=== PATIENT | female | born 1950 | race Caucasian/White ===

== ENCOUNTER 2020-03-17 08:00 | Outpatient (CLI) | payer MEDICARE, MEDICAID ==
[2020-03-17 18:45] LABS: BASOPHILS % (AUTO) 0.4 %; EOSINOPHILS # (AUTO) 0.2 10^3/uL (0.0-0.7); EOSINOPHILS % (AUTO) 3.3 %; HGB - HEMOGLOBIN 13.2 g/dL (12.0-16.0); LYMPHOCYTES # (AUTO) 2.7 10^3/uL (1.5-3.5); MEAN CORPUSCULAR HEMOGLOBIN 30.2 pg (27.0-31.0); MEAN CORPUSCULAR VOLUME 91.5 fL (81.0-99.0); MEAN PLATELET VOLUME 11.3 fL (7.9-10.8); MONOCYTES # (AUTO) 0.5 10^3/uL (0.0-1.0); MONOCYTES % (AUTO) 6.3 %; NEUTROPHILS # (AUTO) 3.7 10^3/uL (1.5-6.6); NEUTROPHILS % (AUTO) 51.9 %; PLT - PLATELET COUNT 254 10^3/uL (130-450); RED BLOOD COUNT 4.37 10^6/uL (4.20-5.40); RED CELL DISTRIBUTION WIDTH 13.2 % (12.0-15.0); WHITE BLOOD COUNT 7.2 x10^3/uL (4.8-10.8)
[2020-03-17 19:30] LABS: HEMOGLOBIN A1c% 8.1 % (4.27-6.07)
[2020-03-17 19:31] LABS: ALBUMIN 3.7 g/dL (3.2-5.5); ALBUMIN/GLOBULIN RATIO 0.9 (1.0-2.2); BILIRUBIN,TOTAL 0.4 mg/dL (0.2-1.0); CALCIUM 9.5 mg/dL (8.5-10.3); CREATININE 1.1 mg/dL (0.4-1.0); TOTAL PROTEIN 7.6 g/dL (6.7-8.2); URIC ACID 10.7 mg/dL (2.6-7.2)
[2020-03-17 19:46] LABS: CREATININE,URINE 111.8 mg/dL; MICROALBUM/CREATININE RATIO,UR 8.9 ug/mg (<30.0)
== END 2020-03-17 23:59 | disposition home or self-care (01) ==
LOC: LAB.N 08:00
PROVIDERS: ATTEND Family Medicine
DX: D50.9 Iron deficiency anemia, unspecified (principal); I25.10 Atherosclerotic heart disease of native coronary artery without angina pectoris; E11.9 Type 2 diabetes mellitus without complications; R42 Dizziness and giddiness; I11.0 Hypertensive heart disease with heart failure; I50.9 Heart failure, unspecified
CPT/HCPCS: 36415; 80053; 82043; 82306; 82570; 82607; 82728; 83036; 83540; 84443; 84466; 84550; 85025

== ENCOUNTER 2020-03-26 07:00 | Outpatient (CLI) | payer MEDICAID, MEDICARE | END 2020-03-26 23:59 | disposition home or self-care (01) | LOC: COV 07:00 | PROVIDERS: ATTEND Ophthalmology | DX: Z01.812 Encounter for preprocedural laboratory examination (principal); H25.812 Combined forms of age-related cataract, left eye; E11.9 Type 2 diabetes mellitus without complications; Z20.828 Contact with and (suspected) exposure to other viral communicable diseases ==

== ENCOUNTER 2020-04-01 06:54 | Day surgery (SDC) | payer MEDICAID, MEDICARE ==
[~2020-04-01 06:54] MED LIST: KETOROLAC 0.45% OPHTH DROPS ONE; PHENYLEPHRINE 2.5% OPHTH 2 ML DROPS ONE; PROPARACAINE 0.5% OPHTH DROPS 15 ML ONE
[2020-04-01] MEDS ORDERED: LACTATED RINGERS 500 ML IV ONE (07:46)
--- NOTE | 2020-04-01 07:51 | ANESTHESIA ---
Pre-Anesthesia VS, & Labs - Diagnosis left eye senile cataract - Procedure left eye cataract extraction with IOL Vital Signs: Temp Pulse Resp BP Pulse Ox 36.1 C L 81 16 141/58 H 98 04/01/20 07:15 04/01/20 07:15 04/01/20 07:15 04/01/20 07:15 04/01/20 07:15 Height: 5 ft 3 in Weight (kg): 88.8 kg Body Mass Index: 34.7 BMI Classification: Obese - NPO >8 hours - Is Patient ?: No Home Medications and Allergies Home Medications: Ambulatory Orders Albuterol Sulf [Ventolin Hfa Inhaler] 1 - 2 puffs INH Q6HR PRN 03/31/20 Alirocumab [Praluent Pen] 75 mg SQ OAW 03/31/20 Aspirin [Aspirin EC] 81 mg PO DAILY 03/31/20 Ergocalciferol [Vitamin D2] 50,000 unit PO Q7D 03/31/20 Insulin Aspart 5 unit SQ QDLUNCH 03/31/20 Insulin Aspart 8 unit SQ QDDINNER 03/31/20 Insulin Aspart (Niacinamide) [Fiasp 100 Unit/ml Vial] 5 unit SUBQ QDBREAKFAST 03/31/20 Insulin NPH Human [NovoLIN N] 50 unit SUBQ QPM 03/31/20 Insulin NPH Human [NovoLIN N] 150 unit SUBQ QDBREAKFAST 03/31/20 Liothyronine [Cytomel] 0.25 tab PO QPM 03/31/20 Liothyronine [Cytomel] 25 mcg PO DAILY 03/31/20 Lisinopril [Zestril] 40 mg PO DAILY 03/31/20 Metoprolol Succinate [Toprol Xl] 25 mg PO DAILY 03/31/20 Multivit-Min/FA/Lycopen/Lutein [Centrum Silver Men Tablet] 1 each PO DAILY 03/31/20 Olopatadine HCl [Pataday] 1 drops OP DAILY PRN 03/31/20 Potassium Chloride [K-Dur] 20 meq PO BID 03/31/20 Prazosin [Minipress] 1 mg PO QPM 03/31/20 Torsemide 40 mg PO DAILY 03/31/20 amLODIPine [Norvasc] 10 mg PO DAILY 03/31/20 Albuterol Sulf [Ventolin Hfa Inhaler] 1 - 2 puffs INH Q6HR PRN 03/31/20 Alirocumab [Praluent Pen] 75 mg SQ OAW 03/31/20 Aspirin [Aspirin EC] 81 mg PO DAILY 03/31/20 Ergocalciferol [Vitamin D2] 50,000 unit PO Q7D 03/31/20 Insulin Aspart 5 unit SQ QDLUNCH 03/31/20 Insulin Aspart 8 unit SQ QDDINNER 03/31/20 Insulin Aspart (Niacinamide) [Fiasp 100 Unit/ml Vial] 5 unit SUBQ QDBREAKFAST 03/31/20 Insulin NPH Human [NovoLIN N] 50 unit SUBQ QPM 03/31/20 Insulin NPH Human [NovoLIN N] 150 unit SUBQ QDBREAKFAST 03/31/20 Liothyronine [Cytomel] 0.25 tab PO QPM 03/31/20 Liothyronine [Cytomel] 25 mcg PO DAILY 03/31/20 Lisinopril [Zestril] 40 mg PO DAILY 03/31/20 Metoprolol Succinate [Toprol Xl] 25 mg PO DAILY 03/31/20 Multivit-Min/FA/Lycopen/Lutein [Centrum Silver Men Tablet] 1 each PO DAILY 03/31/20 Olopatadine HCl [Pataday] 1 drops OP DAILY PRN 03/31/20 Potassium Chloride [K-Dur] 20 meq PO BID 03/31/20 Prazosin [Minipress] 1 mg PO QPM 03/31/20 Torsemide 40 mg PO DAILY 03/31/20 amLODIPine [Norvasc] 10 mg PO DAILY 03/31/20 Allergies/Adverse Reactions: Allergies Allergy/AdvReac Type Severity Reaction Status Date / Time acetaminophen [From Percocet] Allergy Hives Verified 03/31/20 13:18 aripiprazole [From Abilify] Allergy Hives Verified 03/31/20 13:18 brompheniramine Allergy Hives Verified 03/31/20 13:18 [From Dimetapp (brompheniramine-PPA)] canagliflozin [From Invokana] Allergy Hives Verified 03/31/20 13:18 celecoxib [From Celebrex] Allergy Hives Verified 03/31/20 13:18 cephalexin [From Keflex] Allergy Hives Verified 03/31/20 13:18 citalopram [From Celexa] Allergy Hives Verified 03/31/20 13:18 codeine Allergy Rash Verified 03/31/20 13:18 divalproex sodium Allergy Hives Verified 03/31/20 13:18 [From Depakote] enalaprilat [From Vasotec] Allergy Hives Verified 03/31/20 13:18 glipizide Allergy Hives Verified 03/31/20 13:18 hydrocodone Allergy Hives Verified 03/31/20 13:18 latex Allergy Rash Verified 03/31/20 13:18 oxycodone [From Percocet] Allergy Hives Verified 03/31/20 13:18 phenylpropanolamine Allergy Hives Verified 03/31/20 13:18 [From Dimetapp (brompheniramine-PPA)] pioglitazone [From Actos] Allergy Hives Verified 03/31/20 13:18 silicone Allergy Rash Verified 03/31/20 13:18 tramadol [From Ultram] Allergy Hives Verified 03/31/20 13:18 bupropion AdvReac Unknown Verified 03/31/20 13:18 carvedilol AdvReac Unknown Verified 03/31/20 13:18 cetirizine AdvReac Unknown Verified 03/31/20 13:18 chlorthalidone AdvReac Unknown Verified 03/31/20 13:18 ciprofloxacin AdvReac Unknown Verified 03/31/20 13:18 clonidine AdvReac Unknown Verified 03/31/20 13:18 furosemide [From Lasix] AdvReac Unknown Verified 03/31/20 13:18 linagliptin [From Tradjenta] AdvReac Unknown Verified 03/31/20 13:18 metformin AdvReac Unknown Verified 03/31/20 13:18 venlafaxine [From Effexor] AdvReac Unknown Verified 03/31/20 13:18 Anes History & Medical History - Anesthetic History Anesthesia Complications: reports: No previous complications - Medical History Cardiovascular: reports: Congestive heart failure, Hypertension, High cholesterol, Coronary artery disease, Arrhythmia Pulmonary: reports: Asthma, Sleep apnea (has not used for 3 months) Gastrointestinal: reports: None Urinary: reports: Kidney stones Neuro: reports: Dementia Musculoskeletal: reports: Osteoarthritis, Gout Endocrine/Autoimmune: reports: Type 2 diabetes, HyPOthyroidism Skin: reports: None Smoking Status: Never smoker Psychosocial: reports: Depression, Anxiety, Other (bipolar) - Surgical History General: Cholecystectomy, Appendectomy Eyes Ears Nose Throat (EENT): Rhinoplasty Cardiothoracic: Pacemaker Urologic: Bladder surgery Gynecologic: Tubal ligation, Hysterectomy, Mastectomy Orthopedic: Arthroscopic surgery, Other Exam General: Alert, Cooperative Mouth Openin Fingerbreadth Neck Mobility: Normal Mallampati classification: III Cognitive Status: Within normal limits Plan Anesthesia Type: MAC Consent for Procedure(s) Verified and Reviewed: Yes Code Status: Attempt Resuscitation ASA classification: 3-Severe systemic disease Is this case an emergency?: No
[2020-04-01] MEDS ORDERED: MIDAZOLAM 2 MG/2 ML VIAL IVP ONE (07:59)
[2020-04-01] MEDS ORDERED: CHONDR SULF/HYALURONATE SYRINGE IO ONE (08:04)
[2020-04-01] MEDS ORDERED: TRIAMCIN/MOXIFLOX OPHTHALMIC 0.6 ML VIAL IO ONE ×2 (08:04→09:47)
[2020-04-01] MEDS ORDERED: PROPARACAINE 0.5% OPHTH DROPS 15 ML EACHEYE ONE (08:04)
[2020-04-01] MEDS ORDERED: BSS/LIDOCAINE/EPINEPHRINE 1 ML SYRINGE IO ONE (08:04)
[2020-04-01] MEDS ORDERED: VANCOMYCIN OPHTHALMI 8MG/0.8ML 8 MG/0.8 ML SYRINGE IO ONE ×2 (08:04→09:48)
[2020-04-01] MEDS ORDERED: TIMOLOL 0.5% OPHTH DROPS OPTH ONE (08:04)
[2020-04-01] MEDS ORDERED: EPINEPHrine 1 MG/ML AMP IR ONE (08:04)
[2020-04-01] MEDS ORDERED: BRIMONIDINE 0.2% OPHTH DROPS 5 ML OPTH ONE (08:04)
[2020-04-01] MEDS ORDERED: LACTATED RINGERS 400 ML IV ONE (08:16)
[2020-04-01 08:36] VITALS: BP 122/44
[2020-04-01] MEDS ORDERED: BRIMONIDINE 0.2% OPHTH DROPS 5 ML ONE (09:48)
[2020-04-01] MEDS ORDERED: EPINEPHrine 1 MG/ML AMP ONE (09:48)
[2020-04-01] MEDS ORDERED: TIMOLOL 0.5% OPHTH DROPS ONE (09:48)
[2020-04-01] MEDS ORDERED: BSS/LIDOCAINE/EPINEPHRINE 1 ML SYRINGE ONE (09:48)
--- NOTE | 2020-04-01 10:44 | OPERATIVE REPORT ---
DATE OF SERVICE: 04/01/2020 Physician: Adelso Car MD PREOPERATIVE DIAGNOSIS: Visually significant cataract, left eye. This was her first cataract surger y. POSTOPERATIVE DIAGNOSIS: Visually significant cataract, left eye. This was her first cataract surge ry. PROCEDURE PERFORMED: Phacoemulsification with posterior chamber intraocular lens implant, left eye. SURGEON: Adelso Car MD. ANESTHESIA: Monitored anesthesia care. COMPLICATIONS: None. OPERATIVE INDICATIONS: This is a 70-year-old woman with progressive vision loss in the left eye due to 3+ nuclear sclerotic, 2+ cortical, and 1+ posterior subcapsular cataract. Best corrected visual a cuity was 20/30 with glare to light perception vision in the left eye. Indications for surgery are o verall decrease in vision, difficulty reading, difficulty seeing words, closed caption or game scores on TV, difficulty seeing street lights, difficulty driving at night because of headlights from other vehicles, and difficulty with glare or bright lights in any situation. She was consented at length concerning risks and benefits of cataract surgery, after which she expressed a desire to proceed with surgery. OPERATIVE PROCEDURE: The patient was taken to OR #3 and placed under monitored anesthesia care. A s urgical timeout was conducted, confirming correct patient, correct procedure, and correct surgical si te. She was given topical anesthesia and prepped and draped in usual sterile fashion. The eye was e ntered at the 6 and 3 o'clock positions. Intracameral Shugarcaine was injected into the anterior vianey mber followed by Viscoat. A continuous-tear curvilinear capsulorrhexis was performed. The nucleus w as hydrodissected and phacoemulsified. The cortex was evacuated using automated infusion and aspirat ion. Provisc was injected in the capsular bag and a 22.5 diopter intraocular lens inserted in the ba g. Infusion and aspiration were used to evacuate the viscoelastic materials. The eye was inflated t o physiologic pressure using balanced salt solution and found to be watertight. Approximately 0.25 m L of a mixture of triamcinolone and moxifloxacin was injected transsclerally into the vitreous in the inferotemporal quadrant. An additional 0.55 mL of a mixture of triamcinolone, moxifloxacin, and van comycin was injected subconjunctivally in the superior quadrant for infection and inflammation prophy laxis. Wound integrity was checked with Weck-Kylee sponges. The patient was taken from the operating room in good condition and given postoperative instructions. TD: 04/01/2020 08:59
--- NOTE | 2020-04-01 12:04 | ANESTHESIA POST OP EVALUATION ---
Anesthesia Post Eval - Post Anesthesia Eval Vitals: Last Vital Signs Temp 36.4 C L 04/01/20 08:14 Pulse 72 04/01/20 08:14 Resp 14 04/01/20 08:14 BP 122/44 L 04/01/20 08:14 Pulse Ox 98 04/01/20 08:14 CV Function Including HR & BP: positive: Stable Pain Control: positive: Satisfactory Nausea & Vomiting: positive: Negative Mental Status: positive: Baseline Respiratory Status: Airway Patent Hydration Status: Satisfactory Anesthesia Complications: positive: None
== END 2020-04-01 06:55 | disposition home or self-care (01) ==
LOC: SDS 06:54
PROVIDERS: ATTEND Ophthalmology
DX: E11.36 Type 2 diabetes mellitus with diabetic cataract (principal); H25.812 Combined forms of age-related cataract, left eye; Z79.4 Long term (current) use of insulin; I11.0 Hypertensive heart disease with heart failure; I50.9 Heart failure, unspecified; Z95.0 Presence of cardiac pacemaker; G47.33 Obstructive sleep apnea (adult) (pediatric); E66.9 Obesity, unspecified; Z68.34 Body mass index [BMI] 34.0-34.9, adult
CPT/HCPCS: 66984; A9270; J3490; J7120

== ENCOUNTER 2020-04-14 14:37 | Outpatient (CLI) | payer MEDICARE, MEDICAID ==
[2020-04-14 15:36] VITALS: BP 116/63
--- NOTE | 2020-04-14 15:36 | SLEEP CARE CONSULTATION ---
Information from patient questionnaire entered by Leilani Weber. I have reviewed and concur with the information entered by Leilani Weber. This document represents the service I personally performed and the decisions made by me, Ara Brandon ARNP. History of Present Illness Service Date and Time: 04/14/2020 1437 Reason for Visit: New patient Chief Complaint: reports: Unrefreshed sleep, Snoring, Excessive daytime sleepiness, Observed pauses in breathing, Frequent awakenings at night, Other (sleep apnea) Date of Onset: 1-2 years Usual bedtime: 11 PM Time it takes to fall asleep: Few minutes Snores at night: Yes (lightly) Observed to quit breathing while asleep: Yes Sleeps alone due to snoring: No Number of times waking at night: 4 Reasons for waking at night: reports: Choking, Snoring, Gasping for air Toss, Turn, or Twitch while sleeping: Yes Recalls having dreams: No Usually gets out of bed at: 830 Feels refreshed in the morning: No Morning headache: Yes (sometimes) Sleepy or fatigued during the day: Yes Ever fallen asleep while driving: No Takes day naps: Yes Dreams during day naps: Yes Prior sleep studies: Yes Year and Where: In [place] Additional HPI information: I had the pleasure of seeing SE DIAZ today regarding her having a sleep disorder. Her current complaints are sleep apnea. She had a split night study on 04-01-2019 by [facility] with an average AHI of 82.2 for very severe obstructive sleep apnea. She was on CPAP therapy but had to return he machine when she moved in mid-November. Her DME supplier asked her to return the machine saying it was a rental and so she did. She has not been able to use the CPAP therapy since then. She had a Dream station with a small full face mask. - Parasomnia Symptoms Ever been unable to move upon waking from sleep: No Walks in sleep: Yes Talks in sleep: Yes Ever acted out dreams in sleep: Yes Ever felt weak in the knees when startled or emotional: No Bothered by creepy, crawly, restless sensations in legs: No Problems with memory or concentration: Yes Subjective Initial [place] Sleepiness Scale score: 19 (in 2019) Past Medical History Past Medical History: reports: Hypertension, Congestive Heart Failure, Diabetes, Arthritis, Insulin resistance, Gout, Arrythmia, Hypothyroidism, Anxiety, Mood disorder (Bipolar), Attention deficit Social History The patient's occupation is retiree. Patient is Single and lives in [place]. Have you smoked in the past 12 months: No Alcohol use: No Caffeine use: No Family History Family history of sleep disordered breathing: Yes (sisters) Family Hx Sleep Apnea: Sibling: Snoring, Sleep apnea - Treated Allergies and Home Medications Drug allergies reviewed: Yes (as listed in chart) Home medication list reviewed: Yes (see attached list) Review of Systems Cardiovascular: reports: high blood pressure, irregular heart rate or pulse, leg or foot swelling, have to sleep sitting up Respiratory: reports: shortness of breath, chronic cough Urinary: reports: incontinence, frequency Neurological: reports: headaches, disorientation, gait or balance problems Psychiatric: reports: anxiety, mood disorder Ear/Nose/Throat: reports: wisdom teeth removed Endocrine: reports: thyroid disease, sluggishness (tired), too hot or cold, increased urination, unexplained weakness Musculoskeletal: reports: mobility problems Immunologic: reports: allergies to food or environment Physical Exam Blood Pressure: 116/63 Cuff size: wrist Heart Rate: 76 O2 Saturation: 98 Height: 5 ft 3 in Weight: 196 lb Body Mass Index: 34.7 BMI Classification: Obese Nostrils: partially obstructed Turbinates: swollen Mouth and throat: narrow oropharynx Uvula visualization: 25% Mallampati Class III Tongue: normal in size Tonsils: 2+ Neck: normal w/o lymphadenopathy or thyromegaly Heart: regular rate and rhythm Lungs: clear bilaterally Impression and Plan 1. Suspected Obstructive Sleep Apnea-Hypopnea Syndrome, as previously diagnosed in March 2019 and as suggested by a continuing of loud and irregular snoring, observed cessation of breath while asleep, gasping or choking in sleep, morning headache, frequent awakening during the night, unrefreshed sleep, cognitive impairment, and excessive daytime sleepiness without her CPAP machine. Patient had to return her machine at the request of her DME supplier and has not been on CPAP therapy since mid-November. She was doing well on the CPAP machine and really liked the improved sleep and restful sleeping she was getting on therapy. Because she has been off of the machine we will have to reassess to confirm the diagnosis and to assess severity. We can probably do a home study test to be able to get her started sooner. Patient agreed to plan. [[facility] drowsy driving brochure given.] * Schedule polysomnography/HST. * Review instructions provided by trained office staff on how to prepare for the sleep study. * Return for follow-up after sleep study completed. Visit Type: In Office Time Spent with Patient (minutes): 40 Provider Statement: I spent 100% of the Face to Face Visit with the patient with greater than 50% spent counseling the patient and coordination of care.
== END 2020-04-14 14:38 | disposition home or self-care (01) ==
LOC: SC 14:37
PROVIDERS: ATTEND Nurse Practitioner Family
DX: G47.33 Obstructive sleep apnea (adult) (pediatric) (principal); E66.9 Obesity, unspecified; Z68.34 Body mass index [BMI] 34.0-34.9, adult
CPT/HCPCS: 99203; G0463; 99212

== ENCOUNTER 2020-05-04 12:53 | Outpatient (CLI) | payer MEDICARE, MEDICAID | END 2020-05-04 12:54 | disposition home or self-care (01) | LOC: SC 12:53 | PROVIDERS: ATTEND Nurse Practitioner Family | DX: G47.33 Obstructive sleep apnea (adult) (pediatric) (principal); R09.02 Hypoxemia | CPT/HCPCS: G0399 ×2; 95806 ==

== ENCOUNTER 2020-05-07 12:25 | Outpatient (CLI) | payer MEDICARE, MEDICAID | END 2020-05-07 12:26 | disposition home or self-care (01) | LOC: LAB 12:25 | PROVIDERS: ATTEND Ophthalmology | DX: Z01.812 Encounter for preprocedural laboratory examination (principal); H25.811 Combined forms of age-related cataract, right eye; E11.9 Type 2 diabetes mellitus without complications; Z20.822 Contact with and (suspected) exposure to COVID-19 ==

== ENCOUNTER 2020-05-11 16:35 | Outpatient (CLI) | payer MEDICARE, MEDICAID ==
--- NOTE | 2020-05-11 16:51 | SLEEP CARE CONSULTATION ---
Information from patient questionnaire entered by Leilani Weber. I have reviewed and concur with the information entered by Leilani Weber. This document represents the service I personally performed and the decisions made by , Ara Brandon ARNP. History of Present Illness Service Date and Time: 05/11/2020 1640 Initial [place] Sleepiness Scale score: 19 (in 2019) Additional HPI information: SE DIAZ returns via Telehealth visit for follow up and results of the recently performed polysomnography. I explained the pathophysiology behind obstructive sleep apnea. We then spent quite a bit of time discussing different treatment options. For mild obstru ctive sleep apnea, surgery and oral appliance are alternatives to nasal CPAP therapy but in moderate or severe cases, nasal CPAP is the most effective and reliable treatment. Because apnea is primarily in supine position, then positional management therapy could be effective. Methods discussed such as positioning with pillows, using a T-shirt with tennis balls in the back, and shown commercial products that have a pillow format on back to prevent supine sleep. I reviewed the impact of weight changes on sleep apnea and strongly recommended losing weight. After some discussion, the patient opted to go with the nasal CPAP therapy. Nasal autoCPAP set at [id number] will be ordered with rationale explained. A manual titration study will be ordered if unable to find optimal pressure with office adjustments. Patient is a previous CPAP user and is familiar with its function and use. Sleep Study - Results Type of Sleep Study: Home sleep study Prior sleep studies: Yes Year and Where: In [place] Polysomnography/Home Sleep Study results: Physician Impression: The quality of the study is good. The length of the study is adequate (> 240 minutes). Please also see the tabulated and graphic data. 1. Obstructive Sleep Apnea-Hypopnea (ICD-10 G47.33), moderate, with an AHI of 26.5/hr and tika SaO2 of 75%. During the study, the patient had 43 apneas (42 obstructive, 0 central, 1 mixed) and 76 hypopneas. The longest episode lasted 55.0 seconds. The respiratory events occurred independently of body position (supine AHI was 24.4 and non-supine, 26.75). 2. Hypoxemia (ICD-10 R09.02), moderate, with the lowest oxygen saturation of 75 % and 65.4 minutes with SaO2 under 90%. Baseline oxygen saturation was normal (Average oxygen saturation was 91%). 3. Tachycardia, with maximum recoded heart rate of 142 beats per minute. Allergies and Home Medications Home medication list reviewed: Yes (no changes) Review of Systems Review of systems same as previous: Yes (no changes) Physical Exam Vital signs obtained and entered by: Telehealth visit to reduce exposure during covid pandemic Height: 5 ft 3 in Impression and Plan 1. Obstructive Sleep Apnea-Hypopnea Syndrome, moderate, with lowest oxygen saturation of 75%. Patient has a previous diagnosis of severe KINDRA in 2019 but had to return her machine when she moved to [place]. Positive pressure therapy could benefit hypertension, congestive heart failure, diabetes, arrhythmia, anxiety, Bipolar and attention deficit disorder. Patient would like to resume CPAP therapy as mentioned above, the patient will be started on nasal autoCPAP therapy with pressure set at 4-15 cmH2O. Compliance guidelines also reviewed. A copy of compliance guidelines will be given for reference at check out. Patient familiar and voiced understanding. 2. Hypoxemia, moderate. Her tika oxygen saturation was 75% and she spent 65.4 minutes with her oxygen saturation under 90%. Her average oxygen saturation was 91%. She may follow up with her PCP as needed. 3. Tachycardia in a patient with known history of heart arrhythmia. Patient has a pacemaker in place. Follow up with PCP/cardiology as needed. * Nasal auto CPAP therapy, pressure at 4-15 cm H2O. * Attempt to lose weight. * Avoid alcohol consumption near bedtime. * The patient is again cautioned about driving until sleepiness completely resolves. * Return one month after CPAP obtained. I will assess response to therapy and compliance at that time. Counseling Topics: Weight loss health impact Visit Type: Telehealth Video Video Type: VSee Patient Location: Home Location of Provider: Office Patient agrees and consents to this telehealth visit type: Yes Patient agrees to have their insurance billed: Yes Time Spent with Patient (minutes): 21 Provider Statement: I spent 100% of the Telehealth Video Call with the patient with greater than 50% spent counseling the patient and coordination of care.
== END 2020-05-11 16:36 | disposition home or self-care (01) ==
LOC: SC 16:35
PROVIDERS: ATTEND Nurse Practitioner Family
DX: G47.33 Obstructive sleep apnea (adult) (pediatric) (principal); R09.02 Hypoxemia; R00.0 Tachycardia, unspecified

== ENCOUNTER 2020-05-13 07:20 | Day surgery (SDC) | payer MEDICARE, MEDICAID ==
[2020-05-13] MEDS ORDERED: LACTATED RINGERS 500 ML IV ONE ×3 (07:47→09:24)
[2020-05-13] MEDS ORDERED: TRIAMCIN/MOXIFLOX OPHTHALMIC 0.6 ML VIAL IO ONE ×2 (07:56→09:07)
[2020-05-13] MEDS ORDERED: BSS/LIDOCAINE/EPINEPHRINE 1 ML SYRINGE ONE (07:57)
[2020-05-13] MEDS ORDERED: EPINEPHrine 1 MG/ML AMP ONE (07:57)
[2020-05-13] MEDS ORDERED: BRIMONIDINE 0.2% OPHTH DROPS 5 ML ONE (07:57)
[2020-05-13] MEDS ORDERED: VANCOMYCIN OPHTHALMI 8MG/0.8ML 8 MG/0.8 ML SYRINGE IO ONE ×2 (07:57→09:07)
[2020-05-13] MEDS ORDERED: TIMOLOL 0.5% OPHTH DROPS ONE (07:57)
--- NOTE | 2020-05-13 08:08 | ANESTHESIA ---
Pre-Anesthesia VS, & Labs - Diagnosis right eye senile combined cataract - Procedure right eye cataract extraction with IOL implant Vital Signs: Temp Pulse Resp BP Pulse Ox 35.7 C L 111 H 20 139/62 H 100 05/13/20 07:26 05/13/20 07:26 05/13/20 07:26 05/13/20 07:26 05/13/20 07:26 Height: 5 ft 3 in Weight (kg): 88.5 kg Body Mass Index: 34.5 BMI Classification: Obese - NPO >8 hours - Is Patient ?: No - Lab Results Current Lab Results: Laboratory Tests 05/13/20 07:43: POC Whole Bld Glucose 206 H Home Medications and Allergies Albuterol Sulf [Ventolin Hfa Inhaler] 1 - 2 puffs INH Q6HR PRN 03/31/20 Alirocumab [Praluent Pen] 75 mg SQ OAW 03/31/20 Aspirin [Aspirin EC] 81 mg PO DAILY 03/31/20 Ergocalciferol [Vitamin D2] 50,000 unit PO Q7D 03/31/20 Insulin Aspart 5 unit SQ QDLUNCH 03/31/20 Insulin Aspart 8 unit SQ QDDINNER 03/31/20 Insulin Aspart (Niacinamide) [Fiasp 100 Unit/ml Vial] 5 unit SUBQ QDBREAKFAST 03/31/20 Insulin NPH Human [NovoLIN N] 50 unit SUBQ QPM 03/31/20 Insulin NPH Human [NovoLIN N] 150 unit SUBQ QDBREAKFAST 03/31/20 Liothyronine [Cytomel] 0.25 tab PO QPM 03/31/20 Liothyronine [Cytomel] 25 mcg PO DAILY 03/31/20 Lisinopril [Zestril] 40 mg PO DAILY 03/31/20 Metoprolol Succinate [Toprol Xl] 25 mg PO DAILY 03/31/20 Multivit-Min/FA/Lycopen/Lutein [Centrum Silver Men Tablet] 1 each PO DAILY 03/31/20 Olopatadine HCl [Pataday] 1 drops OP DAILY PRN 03/31/20 Potassium Chloride [K-Dur] 20 meq PO BID 03/31/20 Prazosin [Minipress] 1 mg PO QPM 03/31/20 Torsemide 40 mg PO DAILY 03/31/20 amLODIPine [Norvasc] 10 mg PO DAILY 03/31/20 Allergies/Adverse Reactions: Allergies Allergy/AdvReac Type Severity Reaction Status Date / Time Penicillins Allergy Unknown Unknown Verified 05/12/20 14:05 acetaminophen [From Percocet] Allergy Hives Verified 03/31/20 13:18 aripiprazole [From Abilify] Allergy Hives Verified 03/31/20 13:18 brompheniramine Allergy Hives Verified 03/31/20 13:18 [From Dimetapp (brompheniramine-PPA)] canagliflozin [From Invokana] Allergy Hives Verified 03/31/20 13:18 celecoxib [From Celebrex] Allergy Hives Verified 03/31/20 13:18 cephalexin [From Keflex] Allergy Hives Verified 03/31/20 13:18 citalopram [From Celexa] Allergy Hives Verified 03/31/20 13:18 codeine Allergy Rash Verified 03/31/20 13:18 divalproex sodium Allergy Hives Verified 03/31/20 13:18 [From Depakote] enalaprilat [From Vasotec] Allergy Hives Verified 03/31/20 13:18 glipizide Allergy Hives Verified 03/31/20 13:18 hydrocodone Allergy Hives Verified 03/31/20 13:18 latex Allergy Rash Verified 03/31/20 13:18 oxycodone [From Percocet] Allergy Hives Verified 03/31/20 13:18 phenylpropanolamine Allergy Hives Verified 03/31/20 13:18 [From Dimetapp (brompheniramine-PPA)] pioglitazone [From Actos] Allergy Hives Verified 03/31/20 13:18 silicone Allergy Rash Verified 03/31/20 13:18 tramadol [From Ultram] Allergy Hives Verified 03/31/20 13:18 bupropion AdvReac Unknown Verified 03/31/20 13:18 carvedilol AdvReac Unknown Verified 03/31/20 13:18 cetirizine AdvReac Unknown Verified 03/31/20 13:18 chlorthalidone AdvReac Unknown Verified 03/31/20 13:18 ciprofloxacin AdvReac Unknown Verified 03/31/20 13:18 clonidine AdvReac Unknown Verified 03/31/20 13:18 furosemide [From Lasix] AdvReac Unknown Verified 03/31/20 13:18 linagliptin [From Tradjenta] AdvReac Unknown Verified 03/31/20 13:18 metformin AdvReac Unknown Verified 03/31/20 13:18 venlafaxine [From Effexor] AdvReac Unknown Verified 03/31/20 13:18 Anes History & Medical History - Anesthetic History Anesthesia Complications: reports: No previous complications - Medical History Cardiovascular: reports: Congestive heart failure, Hypertension, High cholesterol, Other Pulmonary: reports: Shortness of breath, Sleep apnea (Does not have CPAP yet) Gastrointestinal: reports: None Urinary: reports: Renal insuffiency Neuro: reports: Dementia Musculoskeletal: reports: Osteoarthritis, Gout Endocrine/Autoimmune: reports: Type 2 diabetes, HyPOthyroidism Skin: reports: None Smoking Status: Never smoker Psychosocial: reports: No issues indicated History of Cancer?: No - Surgical History General: Cholecystectomy, Appendectomy Eyes Ears Nose Throat (EENT): Cataracts Gynecologic: Hysterectomy, Mastectomy Exam General: Alert, Oriented x3, Cooperative, No acute distress Dental: Poor dentition Mouth Openin Fingerbreadth Neck Mobility: Normal Mallampati classification: III Thyromental Distance: 4-6 cm Mental/Cognitive Status: Alert/Oriented X3, Normal for patient Plan Anesthesia Type: MAC Consent for Procedure(s) Verified and Reviewed: Yes Code Status: Attempt Resuscitation ASA classification: 3-Severe systemic disease Is this case an emergency?: No
[2020-05-13] MEDS ORDERED: MIDAZOLAM 2 MG/2 ML VIAL ONE ×2 (08:28→08:47)
[2020-05-13] MEDS ORDERED: EPINEPHrine 1 MG/ML AMP IR ONE (09:06)
[2020-05-13] MEDS ORDERED: BRIMONIDINE 0.2% OPHTH DROPS 5 ML OPTH ONE (09:06)
[2020-05-13] MEDS ORDERED: TIMOLOL 0.5% OPHTH DROPS OPTH ONE (09:06)
[2020-05-13] MEDS ORDERED: CHONDR SULF/HYALURONATE SYRINGE IO ONE (09:06)
[2020-05-13] MEDS ORDERED: BSS/LIDOCAINE/EPINEPHRINE 1 ML SYRINGE IO ONE (09:07)
[2020-05-13] MEDS ORDERED: PROPARACAINE 0.5% OPHTH DROPS 15 ML EACHEYE ONE (09:07)
[2020-05-13 09:26] VITALS: BP 128/112
--- NOTE | 2020-05-13 10:35 | OPERATIVE REPORT ---
DATE OF SERVICE: 05/13/2020 Physician: Adelso Car MD PREOPERATIVE DIAGNOSIS: Visually significant cataract, right eye. Cataract surgery was performed on the left eye on 04/01/2020. POSTOPERATIVE DIAGNOSIS: Visually significant cataract, right eye. Cataract surgery was performed o n the left eye on 04/01/2020. PROCEDURE: Phacoemulsification with posterior chamber intraocular lens implant, right eye. SURGEON: Adelso Car MD. ANESTHESIA: Monitored anesthesia care. COMPLICATIONS: None. OPERATIVE INDICATIONS: This is a 70-year-old woman with progressive vision loss in the right eye due to 3+ nuclear sclerotic and 2+ cortical cataract. Best corrected visual acuity was 20/25 with light perception vision with glare in the right eye. She was consented at length concerning risks and matt efits of cataract surgery, after which she expressed a desire to proceed with surgery. OPERATIVE PROCEDURE: The patient was taken to OR #3 and placed under monitored anesthesia care. A s urgical timeout was conducted, confirming correct patient, correct procedure, and the correct surgica l site. She was given topical anesthesia and prepped and draped in the usual sterile fashion. The e ye was entered at the 12 and 9 o'clock positions. Intracameral Shugarcaine was injected into the ant erior chamber followed by Viscoat. A continuous-tear curvilinear capsulorrhexis was performed. The nucleus was hydrodissected and phacoemulsified. The cortex was evacuated using automated infusion an d aspiration. Provisc was injected in the capsular bag and a 22.5 diopter intraocular lens inserted in the bag. Infusion and aspiration were used to evacuate the viscoelastic materials. The eye was i nflated to physiologic pressure using balanced salt solution and found to be watertight. Approximate ly 0.25 mL of a mixture of triamcinolone and moxifloxacin was injected transsclerally into the vitreo us in the inferotemporal quadrant. An additional 0.55 mL of a mixture of triamcinolone, moxifloxacin , and vancomycin was injected subconjunctivally in the superior quadrant for infection and inflammati on prophylaxis. Wound integrity was checked with Weck-Kylee sponges. The patient was taken from the o perating room in good condition and given postoperative instructions. TD: 05/13/2020 09:28
--- NOTE | 2020-05-13 11:06 | ANESTHESIA POST OP EVALUATION ---
Anesthesia Post Eval - Post Anesthesia Eval Vitals: Last Vital Signs Temp 36.4 C L 05/13/20 09:25 Pulse 81 05/13/20 09:25 Resp 16 05/13/20 09:25 BP 128/112 H 05/13/20 09:25 Pulse Ox 96 05/13/20 09:25 CV Function Including HR & BP: positive: Stable Pain Control: positive: Satisfactory Nausea & Vomiting: positive: Negative Mental Status: positive: Patient Participates Respiratory Status: Airway Patent Hydration Status: Satisfactory Anesthesia Complications: positive: None
== END 2020-05-13 07:21 | disposition home or self-care (01) ==
LOC: SDS 07:20
PROVIDERS: ATTEND Ophthalmology
DX: E11.36 Type 2 diabetes mellitus with diabetic cataract (principal); H25.811 Combined forms of age-related cataract, right eye; E66.9 Obesity, unspecified; Z68.34 Body mass index [BMI] 34.0-34.9, adult; I11.0 Hypertensive heart disease with heart failure; I50.9 Heart failure, unspecified; E78.00 Pure hypercholesterolemia, unspecified; G47.30 Sleep apnea, unspecified; N28.9 Disorder of kidney and ureter, unspecified; F31.9 Bipolar disorder, unspecified; D47.2 Monoclonal gammopathy; F03.90 Unspecified dementia, unspecified severity, without behavioral disturbance, psychotic disturbance, mood disturbance, and anxiety; M10.9 Gout, unspecified; E03.9 Hypothyroidism, unspecified; M19.90 Unspecified osteoarthritis, unspecified site; Z95.0 Presence of cardiac pacemaker; Z79.82 Long term (current) use of aspirin; Z79.51 Long term (current) use of inhaled steroids; Z79.4 Long term (current) use of insulin; Z79.899 Other long term (current) drug therapy
CPT/HCPCS: 66984; A9270; J3490; J7120; V2632

== ENCOUNTER 2020-05-17 08:42 | Outpatient (CLI) | payer MEDICARE, MEDICAID ==
[2020-05-17 12:43] LABS: CALCIUM 9.5 mg/dL (8.5-10.3)
[2020-05-17 14:14] LABS: HEMOGLOBIN A1c% 6.6 % (4.27-6.07)
== END 2020-05-17 08:43 | disposition home or self-care (01) ==
LOC: LAB.N 08:42
PROVIDERS: ATTEND Internal Medicine
DX: E11.65 Type 2 diabetes mellitus with hyperglycemia (principal); E55.9 Vitamin D deficiency, unspecified
CPT/HCPCS: 36415; 80048; 82306; 83036

== ENCOUNTER 2020-05-27 11:46 | Outpatient (CLI) | payer MEDICARE, MEDICAID ==
--- NOTE | 2020-05-27 17:27 | XRAY Report ---
PROCEDURE: Foot 3 View LT INDICATIONS: CRUSHING INJURY OF LEFT FOOT TECHNIQUE: 3 views of the foot were acquired. COMPARISON: None FINDINGS: Bones: There is a nondisplaced distal first phalanx fracture best seen on lateral view. No suspicious bony lesions. Severe first MTP degenerative narrowing with small periarticular osteophytes and subc hondral sclerosis is present. Soft tissues: No tibiotalar joint effusion. Achilles tendon appears normal. IMPRESSION: Nondisplaced distal first phalanx fracture. Reviewed by: Nicky Young MD on 05/27/2020 5:25 PM [facility] Approved by: Nicky Young MD on 05/27/2020 5:25 PM [facility] Station ID: [id number]
== END 2020-05-27 23:59 | disposition home or self-care (01) ==
LOC: DI.N 11:46
PROVIDERS: ATTEND Nurse Practitioner
DX: S97.82XA Crushing injury of left foot, initial encounter (principal); S92.425A Nondisplaced fracture of distal phalanx of left great toe, initial encounter for closed fracture

== ENCOUNTER 2020-05-28 13:43 | Outpatient (CLI) | payer MEDICARE, MEDICAID ==
--- NOTE | 2020-05-28 14:13 | CT Report ---
PROCEDURE: HEAD WO INDICATIONS: DEMENTIA, CEREBROVASCULAR DISEASE, PACEMAKER TECHNIQUE: Noncontrast 4.5 mm thick angled axial sections acquired from the foramen magnum to the vertex. For r adiation dose reduction, the following was used: automated exposure control, adjustment of mA and/or kV according to patient size. COMPARISON: None. FINDINGS: Image quality: Excellent. CSF spaces: Basal cisterns are patent. No extra-axial fluid collections. Ventricles are normal in size and shape. Brain: No midline shift. No intracranial masses or hemorrhage. Juárez-white matter interface is norm al. Skull and face: Calvarium and visualized facial bones are intact, without suspicious lesions. Mild sphenoid sinus is seen bilaterally. Remaining paranasal sinuses grossly clear except for trace m ucosal thickening in the right maxillary sinus. Mastoid air cells appear clear. IMPRESSION: No acute intracranial process. Mild paranasal sinus disease as above Reviewed by: Yung Mills MD on 05/28/2020 2:12 PM PST Approved by: Yung Mills MD on 05/28/2020 2:12 PM PST Station ID: [id number]
== END 2020-05-28 13:44 | disposition home or self-care (01) ==
LOC: DI 13:43
PROVIDERS: ATTEND Psychiatry & Neurology Neurology
DX: G45.9 Transient cerebral ischemic attack, unspecified (principal); F03.90 Unspecified dementia, unspecified severity, without behavioral disturbance, psychotic disturbance, mood disturbance, and anxiety; I67.9 Cerebrovascular disease, unspecified; Z95.0 Presence of cardiac pacemaker; J32.9 Chronic sinusitis, unspecified

== ENCOUNTER 2020-06-08 14:05 | Outpatient (CLI) | payer MEDICARE, MEDICAID ==
--- NOTE | 2020-06-08 16:30 | XRAY Report ---
PROCEDURE: Abdomen 2 View X-Ray INDICATIONS: TORTUOUS COLON TECHNIQUE: 2 views of the abdomen were acquired. COMPARISON: None. FINDINGS: Surgical changes and devices: Surgical clips in the right upper quadrant presumably related to cholec ystectomy. Bowel: No pneumoperitoneum. The bowel gas pattern is normal. Moderate amount of stool in colon. Soft tissues: No masses; visualized solid organ contours appear normal in size. No suspicious abdom inal calcifications. Bones: No suspicious bony abnormalities. IMPRESSION: Moderate amount of stool in colon. Reviewed by: Marylin Ortiz MD on 06/08/2020 4:29 PM PST Approved by: Marylin Ortiz MD on 06/08/2020 4:29 PM PST Station ID: [id number]
== END 2020-06-08 14:06 | disposition home or self-care (01) ==
LOC: DI 14:05
PROVIDERS: ATTEND Surgery
DX: K63.89 Other specified diseases of intestine (principal)

== ENCOUNTER 2020-06-08 16:25 | Observation (INO) | payer MEDICARE, MEDICAID ==
[2020-06-08] MEDS ORDERED: SODIUM CHLORIDE 0.9% 1,000 ML IV STA ×2 (17:03→17:04)
--- NOTE | 2020-06-08 17:07 | ED Physician Documentation ---
PD HPI [facility] NEURO - Stated complaint Stated Complaint: CVA SX - Chief complaint Chief Complaint: Neuro - History obtained from History obtained from: Patient, Family - History of Present Illness Timing - onset: How many hours ago (1) Timing - duration: Hours (1) Timing - details: Abrupt onset Weakness: No: Face, Arm, Hand, Leg, Foot, Right, Left Numbness: No: Face, Arm, Hand, Leg, Foot, Right, Left Associated symptoms: No: Headache, Nausea / vomiting, Seizure, Syncope, Fall, Head injury, Chest pain, Neck pain, Back pain, Fever Baseline status: positive: A&OX3, ambulatory, indep - Additional information Additional information: Patient is a 70-year-old female who presents to the emergency department feeling lightheaded, dizzy and "seeing stars in her vision". She states she felt cold, clammy. Better with lying down. [place] like she might pass out. Family states that she had altered mental status. No shortness of breath. No numbness or tingling. Denies any previous events similar to this. The patient did recently moved here from [place]. She has a pacemaker in place. Review of Systems Unable to obtain: Confused Constitutional: denies: Fever, Chills Respiratory: denies: Cough GI: denies: Nausea, Vomiting, Diarrhea Skin: denies: Rash Musculoskeletal: denies: Neck pain, Back pain Neurologic: denies: Headache PD PAST MEDICAL HISTORY - Past Medical History Past Medical History: Yes Respiratory: Shortness of breath, Sleep apnea (Does not have CPAP yet) Neuro: Dementia - Past Surgical History HEENT: Cataracts - Present Medications Home Medications: Ambulatory Orders Medication Instructions Recorded Confirmed Albuterol Sulf [Ventolin Hfa 1 - 2 puffs INH Q6HR PRN 03/31/20 06/08/20 Inhaler] Alirocumab [Praluent Pen] 75 mg SQ OAW 03/31/20 06/08/20 Aspirin [Aspirin EC] 81 mg PO DAILY 03/31/20 06/08/20 Ergocalciferol [Vitamin D2] 50,000 unit PO Q7D 03/31/20 06/08/20 Insulin Aspart 5 unit SQ QDLUNCH 03/31/20 06/08/20 Insulin Aspart 7 unit SQ QDDINNER 03/31/20 06/08/20 Insulin Aspart (Niacinamide) 7 unit SUBQ QDBREAKFAST 03/31/20 06/08/20 [Fiasp 100 Unit/ml Vial] Insulin NPH Human [NovoLIN N] 50 unit SUBQ QPM 03/31/20 06/08/20 Insulin NPH Human [NovoLIN N] 140 unit SUBQ QDBREAKFAST 03/31/20 05/12/20 Liothyronine [Cytomel] 0.25 tab PO QPM 03/31/20 06/08/20 Liothyronine [Cytomel] 25 mcg PO DAILY 03/31/20 06/08/20 Lisinopril [Zestril] 20 mg PO DAILY 03/31/20 06/08/20 Metoprolol Succinate [Toprol Xl] 25 mg PO DAILY 03/31/20 06/08/20 Multivit-Min/FA/Lycopen/Lutein 1 each PO DAILY 03/31/20 06/08/20 [Centrum Silver Men Tablet] Olopatadine HCl [Pataday] 1 drops OP DAILY PRN 03/31/20 06/08/20 Potassium Chloride [K-Dur] 20 meq PO BID 03/31/20 06/08/20 Prazosin [Minipress] 1 mg PO QPM 03/31/20 06/08/20 Torsemide 40 mg PO DAILY 03/31/20 06/08/20 amLODIPine [Norvasc] 10 mg PO DAILY 03/31/20 06/08/20 - Allergies Allergies/Adverse Reactions: Allergies Allergy/AdvReac Type Severity Reaction Status Date / Time Penicillins Allergy Unknown Unknown Verified 06/08/20 16:31 acetaminophen [From Percocet] Allergy Hives Verified 06/08/20 16:31 aripiprazole [From Abilify] Allergy Hives Verified 06/08/20 16:31 brompheniramine Allergy Hives Verified 06/08/20 16:31 [From Dimetapp (brompheniramine-PPA)] canagliflozin [From Invokana] Allergy Hives Verified 06/08/20 16:31 celecoxib [From Celebrex] Allergy Hives Verified 06/08/20 16:31 cephalexin [From Keflex] Allergy Hives Verified 06/08/20 16:31 citalopram [From Celexa] Allergy Hives Verified 06/08/20 16:31 codeine Allergy Rash Verified 06/08/20 16:31 divalproex sodium Allergy Hives Verified 06/08/20 16:31 [From Depakote] enalaprilat [From Vasotec] Allergy Hives Verified 06/08/20 16:31 glipizide Allergy Hives Verified 06/08/20 16:31 hydrocodone Allergy Hives Verified 06/08/20 16:31 latex Allergy Rash Verified 06/08/20 16:31 oxycodone [From Percocet] Allergy Hives Verified 06/08/20 16:31 phenylpropanolamine Allergy Hives Verified 06/08/20 16:31 [From Dimetapp (brompheniramine-PPA)] pioglitazone [From Actos] Allergy Hives Verified 06/08/20 16:31 silicone Allergy Rash Verified 06/08/20 16:31 tramadol [From Ultram] Allergy Hives Verified 06/08/20 16:31 bupropion AdvReac Unknown Verified 06/08/20 16:31 carvedilol AdvReac Unknown Verified 06/08/20 16:31 cetirizine AdvReac Unknown Verified 06/08/20 16:31 chlorthalidone AdvReac Unknown Verified 06/08/20 16:31 ciprofloxacin AdvReac Unknown Verified 06/08/20 16:31 clonidine AdvReac Unknown Verified 06/08/20 16:31 furosemide [From Lasix] AdvReac Unknown Verified 06/08/20 16:31 linagliptin [From Tradjenta] AdvReac Unknown Verified 06/08/20 16:31 metformin AdvReac Unknown Verified 06/08/20 16:31 venlafaxine [From Effexor] AdvReac Unknown Verified 06/08/20 16:31 - Social History Smoking Status: Never smoker PD ED PE NORMAL - Vitals Vital signs reviewed: Yes - General General: No acute distress, Well developed/nourished, Other (Patient is slightly slow to respond, mildly confused) - HEENT HEENT: Atraumatic, PERRL, EOMI, Ears normal, Moist mucous membranes - Neck Neck: Supple, no meningeal sign, No bony TTP - Cardiac Cardiac: RRR, No murmur, Strong equal pulses - Respiratory Respiratory: No respiratory distress, Clear bilaterally - Abdomen Abdomen: Soft, Non tender, Non distended - Back Back: No CVA TTP, No spinal TTP - Derm Derm: Warm and dry, No rash - Extremities Extremities: No edema, No calf tenderness / cord - 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, No motor deficit, No sensory deficit, Normal speech Eye Opening: Spontaneous Motor: Obeys Commands Verbal: Confused GCS Score: 14 - Psych Psych: Normal mood, Normal affect NIHSS - Time Time: 16:40 - Level of Consciousness Level of consciousness: (1) Not alert, but arousable by minor stimulation to obey, or answer LOC Questions: (0) Answers both Q's correct LOC Commands: (0) Performs both correctly - Gaze Best Gaze: (0) Normal - Visual Visual: (0) No loss - Facial Palsy Facial Palsy: (0) Normal, symmetrical movement - Motor Arms (both separate) Motor Arm (right): (0) No drift Motor Arm (left): (0) No drift - Motor Legs (both separate) Motor Leg (right): (0) No drift Motor Leg (left): (0) No drift - Limb Ataxia Limb Ataxia: (0) Absent - Sensory Sensory: (0) Normal - Best Language Best Language: (0) No aphasia - Dysarthria Dysarthria: (0) Normal - Extinction and Inattention (formally neg Extinction and inattention: (0) No abnormality - Total Score/Results Total Score/Result: 1 Results - Vitals Vitals: Vital Signs - 24 hr 06/08/20 06/08/20 06/08/20 16:33 17:15 17:27 Temperature 36.9 C 36.7 C Heart Rate 102 H 97 93 Respiratory 22 20 16 Rate Blood Pressure 141/105 H 143/73 H 118/66 O2 Saturation 98 97 100 06/08/20 06/08/20 06/08/20 17:30 18:13 19:14 Temperature 37.0 C 36.6 C Heart Rate 94 95 96 Respiratory 14 16 15 Rate Blood Pressure 146/63 H 136/57 H 140/67 H O2 Saturation 99 100 99 Oxygen O2 Source Room air - EKG (time done) 1658 Rate: Rate (enter#) (94) Rhythm: Paced - Labs Labs: Laboratory Tests 06/08/20 06/08/20 06/08/20 16:42 16:48 16:48 WBC 10.3 RBC 4.74 Hgb 13.9 Hct 42.1 MCV 88.8 MCH 29.3 MCHC 33.0 RDW 13.6 Plt Count 276 MPV 10.7 Neut # (Auto) 5.4 Lymph # (Auto) 4.1 H Story # (Auto) 0.6 Eos # (Auto) 0.2 Baso # (Auto) 0.0 Absolute Nucleated RBC 0.00 Nucleated RBC % 0.0 Sodium 138 Potassium 3.9 Chloride 102 Carbon Dioxide 24 Anion Gap 12.0 BUN 23 H Creatinine 1.2 H Estimated GFR (MDRD) 45 L Glucose 125 H POC Whole Bld Glucose 126 H Calcium 9.6 Total Bilirubin 0.5 AST 23 ALT 25 Alkaline Phosphatase 61 Troponin I High Sens Total Protein 8.0 Albumin 4.0 Globulin 4.0 Albumin/Globulin Ratio 1.0 Lipase 44 TSH Urine Color Urine Clarity Urine pH Ur Specific [place] Urine Protein Urine Glucose (UA) Urine Ketones Urine Occult Blood Urine Nitrite Urine Bilirubin Urine Urobilinogen Ur Leukocyte Esterase Ur Microscopic Review Urine Culture Comments Nasal Adenovirus (PCR) Nasal B. parapertussis DNA (PCR) Nasal Coronavir 229E PCR Nasal Coronavir HKU1 PCR Nasal Coronavir NL63 PCR Nasal Coronavir OC43 PCR Nasal Enterovir/Rhinovir PCR Nasal Influenza B PCR Nasal Influenza A PCR Nasal Parainfluen 1 PCR Nasal Parainfluen 2 PCR Nasal Parainfluen 3 PCR Nasal Parainfluen 4 PCR Nasal RSV (PCR) Nasal B.pertussis DNA PCR Nasal C.pneumoniae (PCR) Lex Human Metapneumo PCR Nasal M.pneumoniae (PCR) Nasal SARS-CoV-2 (PCR) Salicylates < 6.0 Urine Opiates Screen Ur Oxycodone Screen Urine Methadone Screen Ur Propoxyphene Screen Acetaminophen < 10 L Ur Barbiturates Screen Ur Tricyclics Screen Ur Phencyclidine Scrn Ur Amphetamine Screen U Methamphetamines Scrn U Benzodiazepines Scrn Urine Cocaine Screen U Cannabinoids Screen Ethyl Alcohol < 5.0 06/08/20 06/08/20 06/08/20 16:48 16:48 17:29 WBC RBC Hgb Hct MCV MCH MCHC RDW Plt Count MPV Neut # (Auto) Lymph # (Auto) Story # (Auto) Eos # (Auto) Baso # (Auto) Absolute Nucleated RBC Nucleated RBC % Sodium Potassium Chloride Carbon Dioxide Anion Gap BUN Creatinine Estimated GFR (MDRD) Glucose POC Whole Bld Glucose Calcium Total Bilirubin AST ALT Alkaline Phosphatase Troponin I High Sens 8.7 Total Protein Albumin Globulin Albumin/Globulin Ratio Lipase TSH 1.45 Urine Color Urine Clarity Urine pH Ur Specific [place] Urine Protein Urine Glucose (UA) Urine Ketones Urine Occult Blood Urine Nitrite Urine Bilirubin Urine Urobilinogen Ur Leukocyte Esterase Ur Microscopic Review Urine Culture Comments Nasal Adenovirus (PCR) NOT DETECTED Nasal B. parapertussis DNA (PCR) NOT DETECTED Nasal Coronavir 229E PCR NOT DETECTED Nasal Coronavir HKU1 PCR NOT DETECTED Nasal Coronavir NL63 PCR NOT DETECTED Nasal Coronavir OC43 PCR NOT DETECTED Nasal Enterovir/Rhinovir PCR NOT DETECTED Nasal Influenza B PCR NOT DETECTED Nasal Influenza A PCR NOT DETECTED Nasal Parainfluen 1 PCR NOT DETECTED Nasal Parainfluen 2 PCR NOT DETECTED Nasal Parainfluen 3 PCR NOT DETECTED Nasal Parainfluen 4 PCR NOT DETECTED Nasal RSV (PCR) NOT DETECTED Nasal B.pertussis DNA PCR NOT DETECTED Nasal C.pneumoniae (PCR) NOT DETECTED Lex Human Metapneumo PCR NOT DETECTED Nasal M.pneumoniae (PCR) NOT DETECTED Nasal SARS-CoV-2 (PCR) NOT DETECTED Salicylates Urine Opiates Screen Ur Oxycodone Screen Urine Methadone Screen Ur Propoxyphene Screen Acetaminophen Ur Barbiturates Screen Ur Tricyclics Screen Ur Phencyclidine Scrn Ur Amphetamine Screen U Methamphetamines Scrn U Benzodiazepines Scrn Urine Cocaine Screen U Cannabinoids Screen Ethyl Alcohol 06/08/20 18:51 WBC RBC Hgb Hct MCV MCH MCHC RDW Plt Count MPV Neut # (Auto) Lymph # (Auto) Story # (Auto) Eos # (Auto) Baso # (Auto) Absolute Nucleated RBC Nucleated RBC % Sodium Potassium Chloride Carbon Dioxide Anion Gap BUN Creatinine Estimated GFR (MDRD) Glucose POC Whole Bld Glucose Calcium Total Bilirubin AST ALT Alkaline Phosphatase Troponin I High Sens Total Protein Albumin Globulin Albumin/Globulin Ratio Lipase TSH Urine Color YELLOW Urine Clarity CLEAR Urine pH 7.0 Ur Specific [place] <=1.005 Urine Protein NEGATIVE Urine Glucose (UA) NEGATIVE Urine Ketones NEGATIVE Urine Occult Blood NEGATIVE Urine Nitrite NEGATIVE Urine Bilirubin NEGATIVE Urine Urobilinogen 0.2 (NORMAL) Ur Leukocyte Esterase NEGATIVE Ur Microscopic Review NOT INDICATED Urine Culture Comments NOT INDICATED Nasal Adenovirus (PCR) Nasal B. parapertussis DNA (PCR) Nasal Coronavir 229E PCR Nasal Coronavir HKU1 PCR Nasal Coronavir NL63 PCR Nasal Coronavir OC43 PCR Nasal Enterovir/Rhinovir PCR Nasal Influenza B PCR Nasal Influenza A PCR Nasal Parainfluen 1 PCR Nasal Parainfluen 2 PCR Nasal Parainfluen 3 PCR Nasal Parainfluen 4 PCR Nasal RSV (PCR) Nasal B.pertussis DNA PCR Nasal C.pneumoniae (PCR) Lex Human Metapneumo PCR Nasal M.pneumoniae (PCR) Nasal SARS-CoV-2 (PCR) Salicylates Urine Opiates Screen NEGATIVE Ur Oxycodone Screen NEGATIVE Urine Methadone Screen NEGATIVE Ur Propoxyphene Screen NEGATIVE Acetaminophen Ur Barbiturates Screen NEGATIVE Ur Tricyclics Screen NEGATIVE Ur Phencyclidine Scrn NEGATIVE Ur Amphetamine Screen NEGATIVE U Methamphetamines Scrn NEGATIVE U Benzodiazepines Scrn NEGATIVE Urine Cocaine Screen NEGATIVE U Cannabinoids Screen NEGATIVE Ethyl Alcohol - Rads (name of study) head CT Radiology: Prelim report reviewed, EMP read contemporaneously, See rad report angio head Radiology: Prelim report reviewed, EMP read contemporaneously, See rad report angio neck Radiology: Prelim report reviewed, EMP read contemporaneously, See rad report PD MEDICAL DECISION MAKING - ED course Complexity details: reviewed results, re-evaluated patient, considered differential, d/w patient, d/w family, d/w industrial methods consultant ED course: 70-year-old female with altered mental status today. Does not appear consistent with acute ischemic etiology such as large versus stroke. Possible metabolic? Possible near syncope secondary to dehydration? Discussed the case with Dr. Parker, hospitalist and we will place in observation for further evaluation. This document was made in part using voice recognition software. While efforts are made to proofread this document, sound alike and grammatical errors may occur. IMPRESSION: 1. No acute intracranial abnormality. CT neck: IMPRESSION: 1. Normal CT angiogram of the neck. 2. 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 Recommend biopsy. Findings were discussed with Dr. Garza. Ct Angio head: IMPRESSION: 1. Mild atherosclerotic disease, otherwise normal CTA of the head. 2. Left neck masses. Please see separately dictated CT of the neck. 3. Left sphenoid sinus disease with a likely mucosal retention cyst. Departure - Departure Disposition: ED Place in Observation Clinical Impression: Near syncope Altered mental status Qualifiers: Altered mental status type: transient alteration of awareness Qualified Code(s): R40.4 - Transient alteration of awareness Condition: Stable Discharge Date/Time: 06/08/20 20:10
[2020-06-08 17:08] LABS: BASOPHILS % (AUTO) 0.3 %; EOSINOPHILS # (AUTO) 0.2 10^3/uL (0.0-0.7); EOSINOPHILS % (AUTO) 2.3 %; HCT - HEMATOCRIT 42.1 % (37.0-47.0); HGB - HEMOGLOBIN 13.9 g/dL (12.0-16.0); LYMPHOCYTES # (AUTO) 4.1 10^3/uL (1.5-3.5); LYMPHOCYTES % (AUTO) 39.8 %; MEAN CORPUSCULAR HEMOGLOBIN 29.3 pg (27.0-31.0); MEAN CORPUSCULAR VOLUME 88.8 fL (81.0-99.0); MEAN PLATELET VOLUME 10.7 fL (7.9-10.8); MONOCYTES # (AUTO) 0.6 10^3/uL (0.0-1.0); MONOCYTES % (AUTO) 5.4 %; NEUTROPHILS # (AUTO) 5.4 10^3/uL (1.5-6.6); PLT - PLATELET COUNT 276 10^3/uL (130-450); RED BLOOD COUNT 4.74 10^6/uL (4.20-5.40); RED CELL DISTRIBUTION WIDTH 13.6 % (12.0-15.0); WHITE BLOOD COUNT 10.3 x10^3/uL (4.8-10.8)
--- NOTE | 2020-06-08 17:08 | CT Report ---
PROCEDURE: Head W/O Stroke Protocol INDICATIONS: aloc TECHNIQUE: Noncontrast 4.5 mm thick angled axial sections acquired from the foramen magnum to the vertex, with c oronal reformats. For radiation dose reduction, the following was used: automated exposure control, adjustment of mA and/or kV according to patient size. COMPARISON: 05/28/2020. FINDINGS: Image quality: There is mild beam hardening artifact. CSF spaces: Basal cisterns are patent. No extra-axial fluid collections. Ventricles are normal in size and shape. Brain: No definite intracranial hemorrhage, mass, or mass effect. Juárez-white matter interface appea rs preserved. Skull and face: Calvarium and visualized facial bones are intact, without suspicious lesions. Sinuses: Visualized sinuses and mastoids are clear. IMPRESSION: 1. No acute intracranial abnormality. 2. Findings discussed Dr. Gray on 06/08/2020 at 5:05 PM. This study fulfills neurological imaging criteria for inclusion or exclusion of acute stroke therapie s based on available published neurological imaging guidelines. Reviewed by: Hebert Priest MD on 06/08/2020 5:06 PM PST Approved by: Hebert Priest MD on 06/08/2020 5:06 PM PST Station ID: [id number]
[2020-06-08 17:21] LABS: ACETAMINOPHEN < 10 ug/mL (10-30); ALKALINE PHOSPHATASE 61 IU/L (42-121); ALT ALANINE AMINOTRANSFERASE 25 IU/L (10-60); AST ASPARTATE AMINOTRANSFERASE 23 IU/L (10-42); BILIRUBIN,TOTAL 0.5 mg/dL (0.2-1.0); BUN - BLOOD UREA NITROGEN 23 mg/dL (6-20); CALCIUM 9.6 mg/dL (8.5-10.3); CARBON DIOXIDE - CO2 24 mmol/L (21-32); CHLORIDE 102 mmol/L (101-111); CREATININE 1.2 mg/dL (0.4-1.0); ETOH - ETHANOL < 5.0 mg/dL; GFR - MDRD 45 (>89); GLUCOSE 125 mg/dL (70-100); LIPASE 44 U/L (22-51); POTASSIUM 3.9 mmol/L (3.5-5.0); SALICYLATE < 6.0 mg/dL; SODIUM 138 mmol/L (135-145)
[2020-06-08] MEDS ORDERED: IOVERSOL 320 100 ML VIAL IVP ONE ×2 (18:03→18:19)
--- NOTE | 2020-06-08 18:38 | CT Report ---
PROCEDURE: ANGIO HEAD W/WO INDICATIONS: altered mental status CONTRAST: IV CONTRAST: Optiray 320 ml: 100 PO CONTRAST: *NO PO CONTRAST TECHNIQUE: Precontrast 4.5 mm thick angled axial sections acquired from the foramen magnum to the vertex. Afte r the administration of intravenous contrast, 1 mm thick sections acquired through the [place] of Will is. Postcontrast 4.5 mm thick sections then re-acquired from the foramen magnum to the vertex. 3-di mensional [id number] (MIP) and/or volume rendering reformats were acquired of the c entral intracranial vasculature. For radiation dose reduction, the following was used: automated ex posure control, adjustment of mA and/or kV according to patient size. COMPARISON: None FINDINGS: Image quality: Excellent. Anterior circulation: Intracranial internal carotid arteries have minimal atherosclerotic calcificat ions and are normal in size and flow. The flow within the paired anterior cerebral arteries is jaime l and symmetric. The flow within the middle cerebral arteries is normal and symmetric. The anterior communicating artery is seen. No aneurysms are seen. Posterior circulation: Visualized portions of the vertebral arteries demonstrate normal caliber, and join to form a normal appearing basilar artery. Flow within the posterior cerebral arteries is norm al and symmetric. No aneurysms are seen. CSF spaces: Ventricles are normal in size and shape. Basal cisterns are patent. No extra-axial flu id collections. Brain: No midline shift. No intracranial bleeds or masses. Juárez-white matter interface appears int act. Skull and face: Calvarium and facial bones appear intact, without suspicious lesions. There is a 1. 4 x 1.1 cm mass adjacent to the angle of the left mandible. Additional lymph nodes versus masses are also seen in the left neck. Please see separately dictated CT of the neck. Sinuses: The mastoid air cells are well aerated. In the left lateral recess of the left sphenoid sinu s there is a soft tissue density, likely a mucosal retention cyst. IMPRESSION: 1. Mild atherosclerotic disease, otherwise normal CTA of the head. 2. Left neck masses. Please see separately dictated CT of the neck. 3. Left sphenoid sinus disease with a likely mucosal retention cyst. Reviewed by: Sriram Coleman on 06/08/2020 6:37 PM PST Approved by: Sriram Coleman on 06/08/2020 6:37 PM PST Station ID: [id number]
[2020-06-08] MEDS ORDERED: SODIUM CHLORIDE FLUSH 0.9% 10 ML SYRINGE IVP PRN (18:46)
[2020-06-08] MEDS ORDERED: ONDANSETRON 4 MG/2 ML VIAL IVP PRN (18:46)
[2020-06-08] MEDS ORDERED: ONDANSETRON ODT 4 MG TABLET TL PRN (18:46)
--- NOTE | 2020-06-08 18:47 | CT Report ---
PROCEDURE: ANGIO NECK W INDICATIONS: altered mental status CONTRAST: IV CONTRAST: Optiray 320 ml: 100 PO CONTRAST: *NO PO CONTRAST TECHNIQUE: After the administration of intravenous contrast, 1.5 mm axial sections acquired from the aortic arch to the [place] of [place]. Coronal 3-D maximum intensity projection (MIP) and/or volume rendering ref ormats were then performed. For radiation dose reduction, the following was used: automated exposur e control, adjustment of mA and/or kV according to patient size. COMPARISON: None. FINDINGS: Image quality: Excellent. Carotid system: The great vessels demonstrate a conventional anatomy as they arise from the aortic a [facility]. The origins of the common carotid arteries appear patent. The common carotid arteries demonstr ate normal calibers and courses. The bifurcation regions appear normal bilaterally. The internal ca rotid arteries demonstrate normal caliber and course. Posterior circulation: The origins of the vertebral arteries appear patent. The more superior porti ons of the vertebral arteries demonstrate normal course and caliber. They join to form a normal appe aring basilar artery. Soft tissues: There is are 2 irregular masses measuring 1.3 x 1.0 x 1.9 cm and 1.3 x 0.9 x 1.2 cm 10. 3 x 1.0 x 1.9 cm. More inferiorly along the left cervical chain multiple lymph nodes are enlarged. En larged left supraclavicular nodes are also seen. Bones: No suspicious bony lesions. Visualized cervical spine appears normally aligned. IMPRESSION: 1. Normal CT angiogram of the neck. 2. Irregular left neck masses and associated left cervical and left supraclavicular adenopathy as abo ve is consistent with neoplasm. Recommend biopsy. Findings were discussed with Dr. Garza. The estimate of stenosis included in the report of the imaging study was calculated using the NASCET method Reviewed by: Sriram Coleman on 06/08/2020 6:46 PM PST Approved by: Sriram Coleman on 06/08/2020 6:46 PM PST Station ID: [id number]
[2020-06-08 19:02] LABS: MUDS CUTOFF CONCENTRATIONS CUTOFF CONC BELOW:
[2020-06-08 19:03] LABS: BILIRUBIN,URINE NEGATIVE (NEGATIVE); GLUCOSE, URINE (UA) NEGATIVE (NEGATIVE); KETONES,URINE (UA) NEGATIVE (NEGATIVE); LEUKOCYTE ESTERASE, URINE NEGATIVE (NEGATIVE); NITRITE,URINE NEGATIVE (NEGATIVE); OCCULT BLOOD,URINE NEGATIVE (NEGATIVE); PROTEIN,URINE NEGATIVE (NEGATIVE); UROBILINOGEN,URINE 0.2 (NORMAL) E.U./dL (NORMAL)
[2020-06-08 19:06] LABS: CLARITY,URINE CLEAR (CLEAR)
[2020-06-08 19:14] LABS: AMPHETAMINE SCREEN,URINE NEGATIVE (NEGATIVE); BARBITURATE SCREEN,UR NEGATIVE (NEGATIVE); BENZODIAZEPINES SCREEN, URINE NEGATIVE (NEGATIVE); COCAINE SCREEN URINE NEGATIVE (NEGATIVE); METHADONE SCREEN, URINE NEGATIVE (NEGATIVE); METHAMPHETAMINES SCREEN, URINE NEGATIVE (NEGATIVE); OPIATE SCREEN, URINE NEGATIVE (NEGATIVE); OXYCODONE SCREEN, URINE NEGATIVE (NEGATIVE); PROPOXYPHENE SCREEN, URINE NEGATIVE (NEGATIVE); THC CANNABINOID SCREEN, URINE NEGATIVE (NEGATIVE); TRICYCLIC ANTIDEPRESSANT,URINE NEGATIVE (NEGATIVE)
--- NOTE | 2020-06-08 19:55 | HISTORY & PHYSICAL EXAMINATION ---
Chief Complaint - Chief Complaint Chief Complaint: sudden confusion and tremulous History of Present Illness - Admitted From Admitted From:: Home via ER - History Obtained From Records Reviewed: [facility] History obtained from: patient and ER MD Exam Limitations: none - History of Present Illness HPI Comment/Other: 70-year-old female that presents with sudden onset of anxiety, shakiness, and feeling lightheaded with dizziness. She was tremulous with this. She is a diabetic but not hypoglycemic at the scene. She was brought to the emergency room for this. The daughters statement to the ER triage nurse was "I think she is having a stroke". The patient was alert to person and place only. Daughter stated that this is a big change in status for her. While she has had all of these symptoms before, this is the worse she has ever been with the episodes. There is no antecedent history of fever, chills, nausea. No change in baseline mentation. No coughing, wheezing. No change in abdominal or urinary status. Temperature was 36.9. Heart rate was 102. Blood pressure 141/105. Respirations were 22 and she was 98% saturated on room air. Although the diagnosis was that of near syncope by the ER doctor, there is no description of syncope for this patient. She had a normal physical exam. She was back to [facility] laboratory work showed her to have a BUN and creatinine that was elevated. Baseline creatinine is 1 and she is 1.2. Troponins were normal. Liver function studies were normal. Thyroid was normal. CBC was normal. Urinalysis was normal. Toxicology screen negative for all substances. Salicylates were nondetected. Acetaminophen undetected. Ethyl alcohol undetected. Head and neck CT angiogram are negative. She has irregular left neck masses and associated left cervical and left supraclavicular adenopathy consistent with probable metastatic neoplasm or primary lymphatic neoplasm. CT of head was without intracranial abnormality. No acute stroke. Plain film of the abdomen had moder ate amount of stool in the colon. A previous CT of the head was also seen from May 28 that was done for dementia, history of cerebrovascular disease. Other than mild sphenoid sinus thickening, nothing else was seen. She is now placed in observation for transient altered awareness that was temporary. In reviewing her medical history. She was seen as a new patient with Dr. Del Angel March 17, 2020. At that time she complained of being dizzy, tired, and very disoriented for 3 months. Again no history of fevers, nausea, vomiting. She had just recently moved from [place] in November 2019. The episodes were described as "spacing out". No loss of consciousness. No lateralizing symptoms. No drooping of mouth, expressive aphasia. Today's episode is very similar to those episodes. Her exam was also negative that day. She was alert and cooperative with a normal mood and affect. No focal neurological findings. She was given a nonspecific diagnosis of dizziness. The rest of her medical problems were addressed. She presented again March 25, 2020 with the same dizziness and exhaustion and incoherence. She was seen by telemedicine neurology April 07. The family was concerned about the patient's occasional incoherence and misuse of words. The patient felt like she was not using the wrong words but the family pointed out that that has been going on for a year. The patient alluded to history of "TIAs" in [facility] but really could not give the neurologist much more. It was noted that the daughter generally endorsed the patient's history and propensity for confusion and being overwhelmed with small task and conversations. The neurologist felt that this is been going on for about 5 years, with increasing severity over the last year. She had a history of breast cancer, heart disease with a pacemaker, longstanding diabetes with neuropathy and monoclonal gammopathy of unknown significance. She was also described as having a bipolar disorder with borderline personality. He recommended advancing care and supervision over time sufficient to keep the patient safe in the face of an advancing disability. Emphasis was made in direct daily medication management. She is due for a fu Neurology appt tomorrow am and has a new Cardiology appt at 1 pm as well. History - Past Medical History Cardiovascular: reports: Congestive heart failure, [place] Respiratory: reports: Shortness of breath, Sleep apnea (Does not have CPAP yet. AHI 82.2. CPAP titration found the optimal pressure setting to be 10 cm of water. Normal periodic limb movement index. No arrhythmias.), CPAP use (Done through [facility] March 28, 2019. had to return CPAP when she moved, now getting a new one.) Neuro: reports: Dementia Endocrine/Autoimmune: reports: Type 2 diabetes (Followed by Mary Kline DNP at [facility]. Good control) TARGETEER: reports: Breast cancer (In she and her twin. Genetic mutation is (+). Mastec 04/23/15. sister w prophylactic mast done and Stage II found at surgery. Daughter has had prophylactic as well. ), Other () : reports: Incontinence (milod), Renal insuffiency (CKD Stage III) Psych: reports: Bipolar disorder (with borderline personality disorder) Musculoskeletal: reports: Osteoarthritis (L/S spine and hips hurt), Chronic back pain (with degenerative disc disease) MRSA Hx?: No Other Past Medical History: MGUS. - Past Surgical History General: reports: Cholecystectomy (1981), Appendectomy (1979) Ortho: reports: Arthroscopic surgery (L knee 12/1993), Other (condylectomy & osteotomy R foot 02/1989, neuroma L foot 02/1994) /TARGETEER: reports: Tubal ligation (1983 and another one later in August 1983), Hysterectomy (01/1994), Mastectomy (double 04/29/15), Other ([place] 04/1997) Cardiovascular: reports: Pacemaker (07/22/14) HEENT: reports: Cataracts, Rhinoplasty (for deviated septum 1984) - Family & Social History Family History Comment/Other: Mom of old age in her 90s. Dad at age 68 of heart attack. She has 8 siblings. One of them is her twin sister. Her twin sister had breast cancer, stage II diagnosed with prophylactic mastectomy. Another sister has also had breast cancer. She otherwise feels they are all in pretty good health without heart attack, stroke, diabetes, thyroid. 1 daughter has also had a prophylactic mastectomy for the breast cancer genetic mutation. No cancer. Otherwise healthy. Living arrangement: At home Living Situation: With family Social History Notes: She has lived all over the [place]. She is . As her cognitive deficits got worse, daughter felt that mom live too far away. As such she moved her mother, and mother's twin sister to live with her here in [facility]. The patient never smoked. She has no history of alcohol abuse. No history of recreational substance abuse. - Substance History Use: Uses substance without health or social issues: NONE Abuse: Recurrent use of substance despite neg consequences: NONE Dependence: Experiences withdrawal or developed tolerances: NONE - POLST Patient has POLST: No POLST Status: Full Code Meds/Allgy - Home Medications Home Medications: Ambulatory Orders Medication Instructions Recorded Confirmed Albuterol Sulf [Ventolin Hfa 1 - 2 puffs INH Q6HR PRN 03/31/20 06/08/20 Inhaler] Alirocumab [Praluent Pen] 75 mg SQ OAW 03/31/20 06/08/20 Aspirin [Aspirin EC] 81 mg PO DAILY 03/31/20 06/08/20 Ergocalciferol [Vitamin D2] 50,000 unit PO Q7D 03/31/20 06/08/20 Insulin Aspart 5 unit SQ QDLUNCH 03/31/20 06/08/20 Insulin Aspart 7 unit SQ QDDINNER 03/31/20 06/08/20 Insulin Aspart (Niacinamide) 7 unit SUBQ QDBREAKFAST 03/31/20 06/08/20 [Fiasp 100 Unit/ml Vial] Insulin NPH Human [NovoLIN N] 50 unit SUBQ QPM 03/31/20 06/08/20 Insulin NPH Human [NovoLIN N] 140 unit SUBQ QDBREAKFAST 03/31/20 05/12/20 Liothyronine [Cytomel] 0.25 tab PO QPM 03/31/20 06/08/20 Liothyronine [Cytomel] 25 mcg PO DAILY 03/31/20 06/08/20 Lisinopril [Zestril] 20 mg PO DAILY 03/31/20 06/08/20 Metoprolol Succinate [Toprol Xl] 25 mg PO DAILY 03/31/20 06/08/20 Multivit-Min/FA/Lycopen/Lutein 1 each PO DAILY 03/31/20 06/08/20 [Centrum Silver Men Tablet] Olopatadine HCl [Pataday] 1 drops OP DAILY PRN 03/31/20 06/08/20 Potassium Chloride [K-Dur] 20 meq PO BID 03/31/20 06/08/20 Prazosin [Minipress] 1 mg PO QPM 03/31/20 06/08/20 Torsemide 40 mg PO DAILY 03/31/20 06/08/20 amLODIPine [Norvasc] 10 mg PO DAILY 03/31/20 06/08/20 - Allergies Allergies/Adverse Reactions: Allergies Allergy/AdvReac Type Severity Reaction Status Date / Time Penicillins Allergy Unknown Unknown Verified 06/08/20 16:31 acetaminophen [From Percocet] Allergy Hives Verified 06/08/20 16:31 aripiprazole [From Abilify] Allergy Hives Verified 06/08/20 16:31 brompheniramine Allergy Hives Verified 06/08/20 16:31 [From Dimetapp (brompheniramine-PPA)] canagliflozin [From Invokana] Allergy Hives Verified 06/08/20 16:31 celecoxib [From Celebrex] Allergy Hives Verified 06/08/20 16:31 cephalexin [From Keflex] Allergy Hives Verified 06/08/20 16:31 citalopram [From Celexa] Allergy Hives Verified 06/08/20 16:31 codeine Allergy Rash Verified 06/08/20 16:31 divalproex sodium Allergy Hives Verified 06/08/20 16:31 [From Depakote] enalaprilat [From Vasotec] Allergy Hives Verified 06/08/20 16:31 glipizide Allergy Hives Verified 06/08/20 16:31 hydrocodone Allergy Hives Verified 06/08/20 16:31 latex Allergy Rash Verified 06/08/20 16:31 oxycodone [From Percocet] Allergy Hives Verified 06/08/20 16:31 phenylpropanolamine Allergy Hives Verified 06/08/20 16:31 [From Dimetapp (brompheniramine-PPA)] pioglitazone [From Actos] Allergy Hives Verified 06/08/20 16:31 silicone Allergy Rash Verified 06/08/20 16:31 tramadol [From Ultram] Allergy Hives Verified 06/08/20 16:31 bupropion AdvReac Unknown Verified 06/08/20 16:31 carvedilol AdvReac Unknown Verified 06/08/20 16:31 cetirizine AdvReac Unknown Verified 06/08/20 16:31 chlorthalidone AdvReac Unknown Verified 06/08/20 16:31 ciprofloxacin AdvReac Unknown Verified 06/08/20 16:31 clonidine AdvReac Unknown Verified 06/08/20 16:31 furosemide [From Lasix] AdvReac Unknown Verified 06/08/20 16:31 linagliptin [From Tradjenta] AdvReac Unknown Verified 06/08/20 16:31 metformin AdvReac Unknown Verified 06/08/20 16:31 venlafaxine [From Effexor] AdvReac Unknown Verified 06/08/20 16:31 Review of Systems - Constitutional Constitutional: denies: Fatigue, Fever, Chills, Malaise, Poor appetite, Diaphoresis, Night sweats - Eyes Eyes: reports: Vision loss (Presbyopia). denies: Pain, Irritation, Amaurosis - Ears, Nose & Throat Ears, Nose & Throat: reports: Hearing loss, Vertigo. denies: Ear pain, Hearing aids, Tinnitus, Nasal obstruction, Nasal congestion, Postnasal drainage - Cardiovascular Cariovascular: reports: Edema, Lightheadedness, Exertional dyspnea, Decr. exercise tolerance. denies: Irregular heart rate, Palpitations, Chest pain, Orthopnea - Respiratory Respiratory: reports: SOB with exertion, Apnea, Other (Gets bronchitis once a year. However ever since she is moved to [facility] in November 2019, no bronchitis this year). denies: Cough, Sputum production, Wheezing - Gastrointestinal Gastrointestinal: denies: Abdominal pain, Abdominal distention, Constipation, Diarrhea, Change in bowel habits - Genitourinary Genitourinary: reports: Incontinence (Very slight with laughing or sneezing). denies: Dysuria, Frequency, Urgency, Hematuria - Musculoskeletal Musculoskeletal: reports: Back pain, Joint pain (Hips and back) - Integumentary Integumentary: reports: Dryness. denies: Rash, Pruritis, Lesions - Neurological Neurological: reports: Dizziness, Memory problems, Pre-existing deficit. denies: General weakness, Focal weakness, Headache - Psychiatric Psychiatric: reports: Anxiety. denies: Suicidal - Endocrine Endocrine: denies: Polyuria, Polydypsia, Polyphagia - Hematologic/Lymphatic Hematologic/Lymphatic: denies: Anemia, Bruising, Petechiae Prior Level of Functionality: The patient states that she is able to take care of her self. She feeds her self, dresses herself. Yet she has no cognitive deficits that she had to move in with her daughter so that her daughter can take care of her. She does not drive. Daughter takes care of finances. Exam - Vital Signs Reviewed Vital Signs: Yes Vital Signs: Vital Signs x48h Temp Pulse Resp BP Pulse Ox 06/08/20 19:14 36.6 C 96 15 140/67 H 99 06/08/20 18:13 37.0 C 95 16 136/57 H 100 06/08/20 17:30 94 14 146/63 H 99 06/08/20 17:27 93 16 118/66 100 06/08/20 17:15 36.7 C 97 20 143/73 H 97 06/08/20 16:33 36.9 C 102 H 22 141/105 H 98 - Physical Exam General Appearance: positive: No acute distress, Alert, Other (Pleasant, cooperative, completely lucid elderly female who looks much older than stated age at 5 foot 3 inches tall and 88.5 kg.She is able to contribute to the conversation and provide additional details. She and daughter both agree about what is going on) Eyes Bilateral: positive: PERRL, EOMI ENT: positive: Pharynx nml Neck: positive: No JVD. negative: Stiff neck, Carotid bruit Respiratory: positive: Chest non-tender. negative: Wheezes, Rales, Rhonchi Cardiovascular: positive: Regular rate & rhythm, Systolic murmur. negative: Gallop/S4, Friction rub Peripheral Pulses: positive: 1+ Abdomen: positive: Non-tender, No organomegaly, Nml bowel sounds, No distention Skin: positive: No rash, Warm, Dry Extremities: positive: Full ROM, Pedal edema (Trace around the ankles) Neurologic/Psychiatric: positive: Oriented x3, CN's nml (2-12), Motor nml. negative: Weakness, Facial droop, Slurred/abnml speech, Depressed mood/affect Conclusion/Plan - Problem List (1) Altered mental status Conclusion/Plan: In reviewing the medical record and going over the medical record with the patient and the daughter, both agree that the history is essentially unchanged. The episodes are not much different from one another except that today's episode was much more severe in its verbal aphasia/apraxia. Also there was more tremulousness. It really frightened the daughter. Until she knows what the diagnosis is she does not know if she should be bringing mom and or not. A CT of the head was negative last week. Repeat CT of the head is negative now. If this woman is having infarcts or not being seen on CTs. She would benefit from an MRI, and further neurological work-up. That will be occurring tomorrow morning at 8:40 AM with teleneurology visit. At this time I am not seeing any signs or symptoms of infection. No signs or symptoms of recreational substance abuse. No accidental overdose of recreational substances. No electrolyte abnormalities that would cause this. TSH is normal. After a very long discussion with the daughter, going over the pros and cons, daughter would like to take mom home tonight. However she shared with me the frustration of not knowing what the diagnosis is and not knowing how alarm she should be, alarmed enough to bring mom in order to not bring mom in. I am hoping that the neurology consult tomorrow will be able to answer that for her. I did discuss that sometimes we do telemetry monitoring for 24 to 36 hours and a "TIA". But I do not think mom is having TIAs. As such, after 2 to 3 hours of observation status, the patient will be discharged to home. Qualifiers: Altered mental status type: transient alteration of awareness Qualified Code(s): R40.4 - Transient alteration of awareness (2) Vascular dementia Conclusion/Plan: Is what I would guess would be the most likely cause of her memory loss. Combined that memory loss with a personality disorder, this could be the possible reason for the waxing and waning phenomena the daughter is seen. However, this unfortunate patient has all the risk factors for "pruning" of the distal arterial/capillary blood supply to her brain resulting in vascular dementia. An MRI of the brain would be helpful. To follow through with neurology tomorrow. Qualifiers: Dementia behavioral disturbance: without behavioral disturbance Qualified Code(s): F01.50 - Vascular dementia without behavioral disturbance (3) History of personality disorder Conclusion/Plan: Borderline personality disorder. Daughter states that she seems to be controlled from that perspective. (4) Type 2 diabetes mellitus treated with insulin Conclusion/Plan: Current glucose at goal. No change in discharge medication list. (5) Congestive heart failure Conclusion/Plan: This patient does not have clear-cut systolic or diastolic heart failure by exam or by history. She reports that she had an echocardiogram done a few years ago in [facility]. She will be seeing cardiology tomorrow and most likely she will get a repeat echocardiogram done with him. Qualifiers: Heart failure type: unspecified (6) Lymphadenopathy of head and neck Conclusion/Plan: I explained to the patient and her daughter that she has a diagnosis of monoclonal gammopathy of unknown significance. We discussed that it could be an indolent disease and that the patient could possibly lead a normal life span with no need for treatment. However the disease can also progress. The lymphadenopathy of her neck is concerning. I would ask her to follow-up with her primary care provider. I did try to order serum protein electrophoresis and serum immunoelectrophoresis before she left. Although the order was put in, I do not believe lab had time to draw it before the patient was discharged. As such I would asked that she get this done with her primary care provider's office and then referred to oncology for evaluation and treatment. (7) Obstructive sleep apnea hypopnea, moderate Conclusion/Plan: Unfortunately she had to return her machine when she left [facility] because it was "a rental". She is now in the process of getting reevaluated by the sleep center and getting a new machine. I will be she can get that done as soon as possible. I did discuss the link of obstructive sleep apnea and risk of dementia, stroke, etc. (8) Acute kidney insufficiency Conclusion/Plan: Baseline creatinine is 1.0. She is 1.2 with us today. Possibly decreased p.o. intake in the face of someone who is mildly confused. She received a little over a liter with us here in the hospital. Would repeat labs when she next sees her primary care provider. - Lab Results Lab results reviewed: Yes Fish Bones: 06/08/20 16:48 06/08/20 16:48 - Diagnostic Imaging Results Diagnostic Imaging Results: positive: Final report reviewed - EKG Results EKG Interpreted Independently: No EKG Comparison: Unchanged from prior EKG Core Measures - Anticipated LOS I expect patient to be DC'd or transferred within 96 hours.: Yes - DVT/VTE - Prophylaxis VTE/DVT Device ordered at admit?: No Not Ordered - Low Risk: Low Risk
[2020-06-08 20:22] LABS: B. PARAPERTUSSIS- RESP PCR PAN NOT DETECTED; B. PERTUSSIS- RESP PCR PANEL NOT DETECTED; C. PNEUMONIAE- RESP PCR PANEL NOT DETECTED; CORONAVIRUS 229E-RESP PCR NOT DETECTED; CORONAVIRUS HKU1-RESP PCR NOT DETECTED; CORONAVIRUS NL63-RESP PCR NOT DETECTED; CORONAVIRUS OC43-RESP PCR NOT DETECTED; HUMAN METAPNEUMOVIRUS NOT DETECTED; INFLUENZA A- RESP PCR PANEL NOT DETECTED; INFLUENZA B - RESP PCR PANEL NOT DETECTED; M. PNEUMONIAE- RESP PCR PANEL NOT DETECTED; PARAINFLUENZA VIRUS 1 NOT DETECTED; PARAINFLUENZA VIRUS 2 NOT DETECTED; PARAINFLUENZA VIRUS 3 NOT DETECTED; PARAINFLUENZA VIRUS 4 NOT DETECTED; RHINOVIRUS/ENTEROVIRUS NOT DETECTED; RSV- RESP PCR PANEL NOT DETECTED; SARS-CoV-2 -RESP PCR PANEL NOT DETECTED
--- NOTE | 2020-06-08 21:08 | Discharge Plan ---
Discharge Plan Problem Reviewed?: Yes Disposition: Home, Self Care Condition: Stable Diet: Diabetic Activity Restrictions: Activity as Tolerated Shower Restrictions: No Driving Restrictions: Yes (no driving) Health Concerns: You were brought to the hospital with a much worse episode of dizziness, confusion, disorientation, and word finding than you have ever had before. You had already been seen twice for this in the walk-in clinic with Dr. Del Angel. You have been seen by neurology. You have already had a CT of the head. But today it was much worse than usual so you were brought to the emergency room. You are now back down to baseline. CT angiogram of the head is negative. Your lab work is normal other than mild dehydration. EKG and telemetry have shown you to have a normal heart rhythm so far. You have an appointment with the supervisor sign shop tomorrow at 1 PM, and follow-up with neurology tomorrow at 8:40 AM. Plan of Treatment: 1. After discussion with your daughter, I think it is okay for you to go home [facility] to keep your appointments for tomorrow. 2. Stress to the supervisor sign shop that you need a new echocardiogram. You have an old echocardiogram back with your supervisor sign shop in [facility]. You need a new echocardiogram because you have chronic shortness of breath with trying to do anything. Mild leg edema. In order to make sure a temporary irregular heart beat is not the cause of your sudden confusion, ask him/her if they can order a Holter Monitor. You stated you have had one before. 3. Please let the neurologist know that she was seen and had a repeat CT of head and angiogram of head and neck done. I will give you a copy of those reports. 4. Your blood work was negative for infection, heart attack, uncontrolled diabetes, low glucose, you do have dehydration. Make sure you are drinking at least 48 ounces of water a day. The only abnormality the CAT scan of your neck showed was enlarged lymph glands of the neck. You have known monoclonal gammopathy of unknown significance. I have ordered blood test for that. But I do not think they will be done before you leave [facility]. As such make sure you tell your primary care provider to order a serum protein electrophoresis and a serum immunoelectrophoresis to follow-up on your "MGUS" Care Goals: To get to the bottom of these episodes. It would be very helpful if you could get a diagnosis that would help you and your daughter understand what you needed to do for future episodes. Assessment: Patient is back to baseline. She is lucid, conversational. Able to provide spencer pieces of history such as remembering an echo and a Holter monitor in the past. Plan given to her and her daughter and they are both amenable to this. No Smoking: If you smoke, Please STOP! Call for help. Follow-up with: Dilip Carvajal MD [Primary Care Provider] -
[2020-06-08 21:33] VITALS: BP 134/66
[2020-06-09] MEDS ORDERED: SODIUM CHLORIDE FLUSH 0.9% 10 ML SYRINGE IVP SCH (01:00)
--- NOTE | 2020-06-09 01:15 | DISCHARGE SUMMARY ---
Discharge Summary Admit Date: 06/08/20 Discharge Date: 06/08/20 Discharging Provider: Guerline Harding MD Primary Care Provider: Dilip Carvajal MD Code Status: Attempt Resuscitation Condition at Discharge: Stable Discharge Disposition: 01 Home, Self Care - DIAGNOSES Discharge Diagnoses with Status of Each Condition: 1. Altered mental status 2. Vascular dementia 3. History of personality disorder 4. Type 2 diabetes mellitus, treated with insulin 5. Congestive heart failure unspecified 6. Lymphadenopathy of head and neck 7. History of monoclonal gammopathy of unknown significance 8. Obstructive sleep apnea/hypopnea 9. Acute kidney insufficiency - HPI History of Present Illness: Please see dictated history and physical for patient that was in the hospital less than 4 hours - HOSPITAL COURSE Hospital Course: Please see dictated history and physical for patient was in the hospital less than 4 hours. History and physical exam is the discharge exam. - ALLERGIES Allergies/Adverse Reactions: Allergies Allergy/AdvReac Type Severity Reaction Status Date / Time Penicillins Allergy Unknown Unknown Verified 06/08/20 16:31 acetaminophen [From Percocet] Allergy Hives Verified 06/08/20 16:31 aripiprazole [From Abilify] Allergy Hives Verified 06/08/20 16:31 brompheniramine Allergy Hives Verified 06/08/20 16:31 [From Dimetapp (brompheniramine-PPA)] canagliflozin [From Invokana] Allergy Hives Verified 06/08/20 16:31 celecoxib [From Celebrex] Allergy Hives Verified 06/08/20 16:31 cephalexin [From Keflex] Allergy Hives Verified 06/08/20 16:31 citalopram [From Celexa] Allergy Hives Verified 06/08/20 16:31 codeine Allergy Rash Verified 06/08/20 16:31 divalproex sodium Allergy Hives Verified 06/08/20 16:31 [From Depakote] enalaprilat [From Vasotec] Allergy Hives Verified 06/08/20 16:31 glipizide Allergy Hives Verified 06/08/20 16:31 hydrocodone Allergy Hives Verified 06/08/20 16:31 latex Allergy Rash Verified 06/08/20 16:31 oxycodone [From Percocet] Allergy Hives Verified 06/08/20 16:31 phenylpropanolamine Allergy Hives Verified 06/08/20 16:31 [From Dimetapp (brompheniramine-PPA)] pioglitazone [From Actos] Allergy Hives Verified 06/08/20 16:31 silicone Allergy Rash Verified 06/08/20 16:31 tramadol [From Ultram] Allergy Hives Verified 06/08/20 16:31 bupropion AdvReac Unknown Verified 06/08/20 16:31 carvedilol AdvReac Unknown Verified 06/08/20 16:31 cetirizine AdvReac Unknown Verified 06/08/20 16:31 chlorthalidone AdvReac Unknown Verified 06/08/20 16:31 ciprofloxacin AdvReac Unknown Verified 06/08/20 16:31 clonidine AdvReac Unknown Verified 06/08/20 16:31 furosemide [From Lasix] AdvReac Unknown Verified 06/08/20 16:31 linagliptin [From Tradjenta] AdvReac Unknown Verified 06/08/20 16:31 metformin AdvReac Unknown Verified 06/08/20 16:31 venlafaxine [From Effexor] AdvReac Unknown Verified 06/08/20 16:31 - MEDICATIONS Home Medications: Ambulatory Orders Medication Instructions Recorded Confirmed Albuterol Sulf [Ventolin Hfa 1 - 2 puffs INH Q6HR PRN 03/31/20 06/08/20 Inhaler] Alirocumab [Praluent Pen] 75 mg SQ OAW 03/31/20 06/08/20 Aspirin [Aspirin EC] 81 mg PO DAILY 03/31/20 06/08/20 Ergocalciferol [Vitamin D2] 50,000 unit PO Q7D 03/31/20 06/08/20 Insulin Aspart 5 unit SQ QDLUNCH 03/31/20 06/08/20 Insulin Aspart 7 unit SQ QDDINNER 03/31/20 06/08/20 Insulin Aspart (Niacinamide) 7 unit SUBQ QDBREAKFAST 03/31/20 06/08/20 [Fiasp 100 Unit/ml Vial] Insulin NPH Human [NovoLIN N] 50 unit SUBQ QPM 03/31/20 06/08/20 Insulin NPH Human [NovoLIN N] 140 unit SUBQ QDBREAKFAST 03/31/20 05/12/20 Liothyronine [Cytomel] 0.25 tab PO QPM 03/31/20 06/08/20 Liothyronine [Cytomel] 25 mcg PO DAILY 03/31/20 06/08/20 Lisinopril [Zestril] 20 mg PO DAILY 03/31/20 06/08/20 Metoprolol Succinate [Toprol Xl] 25 mg PO DAILY 03/31/20 06/08/20 Multivit-Min/FA/Lycopen/Lutein 1 each PO DAILY 03/31/20 06/08/20 [Centrum Silver Men Tablet] Olopatadine HCl [Pataday] 1 drops OP DAILY PRN 03/31/20 06/08/20 Potassium Chloride [K-Dur] 20 meq PO BID 03/31/20 06/08/20 Prazosin [Minipress] 1 mg PO QPM 03/31/20 06/08/20 Torsemide 40 mg PO DAILY 03/31/20 06/08/20 amLODIPine [Norvasc] 10 mg PO DAILY 03/31/20 06/08/20 - LABS Result Diagrams: 06/08/20 16:48 06/08/20 16:48
[2020-06-09] MEDS ORDERED: ENOXAPARIN 40 MG/0.4 ML SYRINGE SUBQ SCH (09:00)
== END 2020-06-08 21:55 | disposition home or self-care (01) ==
LOC: ED 16:25 → MS2 19:28
PROVIDERS: ADMIT Internal Medicine; ATTEND Specialist
DX: R40.4 Transient alteration of awareness (principal); F01.50 Vascular dementia, unspecified severity, without behavioral disturbance, psychotic disturbance, mood disturbance, and anxiety; F60.3 Borderline personality disorder; E11.9 Type 2 diabetes mellitus without complications; Z79.4 Long term (current) use of insulin; I50.9 Heart failure, unspecified; R59.0 Localized enlarged lymph nodes; D47.2 Monoclonal gammopathy; G47.33 Obstructive sleep apnea (adult) (pediatric); N28.9 Disorder of kidney and ureter, unspecified; E86.0 Dehydration; Z20.822 Contact with and (suspected) exposure to COVID-19; R06.02 Shortness of breath; Z95.0 Presence of cardiac pacemaker; I25.2 Old myocardial infarction; Z85.3 Personal history of malignant neoplasm of breast; K63.89 Other specified diseases of intestine
CPT/HCPCS: 36415; 70450; 70496; 70498; 74019; 80053; 80306; 80307; 81003; 81599; 83690; 84443; 84484; 85025; 87631; 93005; 99284; 99285; G0378; G0480; Q9967; 0202U; 80320; 80329; 81001; 87086

== ENCOUNTER 2020-07-14 14:05 | Outpatient (CLI) | payer MEDICARE, MEDICAID ==
--- NOTE | 2020-07-14 14:50 | SLEEP CARE CONSULTATION ---
Information from patient questionnaire entered by Leilani Weber. I have reviewed and concur with the information entered by Leilani Weber. This document represents the service I personally performed and the decisions made by , Ara Brandon ARNP. History of Present Illness Service Date and Time: 07/14/2020 1405 Previous diagnosis: Moderate, Obstructive Sleep Apnea-Hypopnea Syndrome AHI: 26.5 Reason for follow up: first compliance (06/10) Equipment type: CPAP Equipment obtained from: Other ([employer] in [place]; initial supplies) Mask style: Full face Backup mask available: No (will keep old mask when replaced) Last cushion change: about a month Prior sleep studies: Yes Year and Where: 2020 [facility] Type of Sleep Study: Home sleep study HPI additional information: SE DIAZ was diagnosed to have moderate, AHI 26.5, obstructive sleep apnea- hypopnea syndrome and returned today with caregiver for CPAP therapy first compliance follow-up. CPAP Compliance Data - Data Reviewed with Patient Average duration of nightly device use: 7 hours Compliance rate %: 87 Current pressure setting (cmH2O): 4-15 (median 10.2, avg 11.3, max 12.1) Average residual AHI: 1.0 Central apnea: 0.3 Obstructive apnea: 0.2 Subjective Missed days of use due to: reports: family emergency Patient concerns: denies: aerophagia, mask discomfort, air blowing in eyes, mask leak noise, condensation in mask/hose, nasal congestion, dry mouth, nose, throat, epistaxis, other Observed to snore while using device: No Current pressure setting perceived as: too low On therapy, patient: reports: sleeping better, awakening more refreshed, being more awake and alert during the day, more rested overall, other (doesn't drive) Initial [place] Sleepiness Scale score: 19 (in 2020) Current [place] Sleepiness Scale score: 5 Allergies and Home Medications Home medication list reviewed: Yes (no changes) Review of Systems Review of systems same as previous: Yes (no changes) Physical Exam Heart Rate: 87 O2 Saturation: 98 Height: 5 ft 3 in Weight: 194 lb Body Mass Index: 34.3 BMI Classification: Obese Impression and Plan 1. Obstructive Sleep Apnea-Hypopnea Syndrome, moderate, with good treatment compliance and good apnea control. On CPAP therapy, the patient has better sleep quality and is more rested overall. She is really happy with her new CPAP machine. She is using a full face mask now, initially she was given a different mask but they were able to exchange it for the full face and she feels it is comfortable. She has no complaints about the mask. She thinks the startup ramp pressure is too low when she puts the mask on, she feel like she cannot breath until the pressure increases. I will have them increase her startup ramp pressure to 6 cmH2O. She is using median pressure of [id number], average of 11.3cmH2O and maximum of 12.1cmH2O. I will adjust her pressure to 10-12 cmH2O and have her follow up in 1-2 months for recheck. She voiced understanding. Patient's apnea severity and rationale for treatment to reduce apnea, improve sleep quality and reduce cardiovascular and cerebrovascular events was reviewed. I also reviewed the benefit of consistent device use of CPAP for hypertension, CHF, arrhythmia, diabetes, anxiety, and bipolar/ADD. * Change auto CPAP pressure to 10-12 cmH2O * Increase ramp startup pressure to 6 cmH2O * Notify me if snoring with mask or feeling that the pressure is too much or too little * Attempt to lose weight * Call this office if any problems using CPAP * Return for follow up in 1-2 months, or sooner if concerns arise Counseling Topics: Spare mask, Weight loss health impact Visit Type: In Office Other Participants: Caregiver Time Spent with Patient (minutes): 25 Provider Statement: I spent 100% of the Face to Face Visit with the patient with greater than 50% spent counseling the patient and coordination of care.
== END 2020-07-14 14:06 | disposition home or self-care (01) ==
LOC: SC 14:05
PROVIDERS: ATTEND Nurse Practitioner Family
DX: G47.33 Obstructive sleep apnea (adult) (pediatric) (principal); E66.9 Obesity, unspecified; Z68.34 Body mass index [BMI] 34.0-34.9, adult
CPT/HCPCS: 99213; G0463; 99212

== ENCOUNTER 2020-08-06 12:45 | Outpatient (CLI) | payer MEDICARE, MEDICAID ==
--- NOTE | 2020-08-06 14:11 | DEXA Report ---
PROCEDURE: Dexa Spine and/or Hip INDICATIONS: POST MENOPAUSAL TECHNIQUE: Dual energy x-ray absorptiometry (DXA) was performed on a [employer] System. Regions measur ed are the AP Spine, femoral neck, and if needed forearm. COMPARISON: None. FINDINGS: Lumbar Spine: Bone Mineral Density 1.289 g/cm/cm,T score 0.9, normal Left Hip: Bone Mineral Density 1.113 g/cm/cm,T score 0.8, normal Left Femoral Neck: Bone Mineral Density 0.986 g/cm/cm, T score -0.4, normal (T score greater or equal to -1.0: NORMAL) (T score from -1.1 to -2.4: OSTEOPENIA) (T score less than or equal to -2.5 to: OSTEOPOROSIS) Impression: Normal bone mineral density over the lumbosacral spine overall and the left hip region. T argeted imaging of the femoral neck on the left also shows normal bone mineral density. Patients with diagnosis of osteoporosis or osteopenia should have regular bone mineral density assess ment. For those eligible for Medicare, routine testing is allowed once every 2 years. Testing frequ ency can be increased for patients who have rapidly progressing disease or for those who are receivin g medical therapy to restore bone mass. Reviewed by: David Hanson MD on 08/06/2020 2:10 PM PDT Approved by: David Hanson MD on 08/06/2020 2:10 PM PDT Station ID: [id number]
== END 2020-08-06 12:46 | disposition home or self-care (01) ==
LOC: DI 12:45
PROVIDERS: ATTEND Internal Medicine
DX: Z13.820 Encounter for screening for osteoporosis (principal); Z78.0 Asymptomatic menopausal state

== ENCOUNTER 2020-08-26 12:34 | Outpatient (CLI) | payer MEDICARE, MEDICAID ==
--- NOTE | 2020-08-26 13:17 | SLEEP CARE CONSULTATION ---
Information from patient questionnaire entered by Shelly Lux. I have reviewed and concur with the information entered by Shelly Lux. This document represents the service I personally performed and the decisions made by , Ara Brandon ARNP. History of Present Illness Service Date and Time: 08/26/2020 1234 Previous diagnosis: Moderate, Obstructive Sleep Apnea-Hypopnea Syndrome AHI: 26.5 (in 2020) Reason for follow up: other (6 week with pressure change) Equipment type: CPAP Equipment obtained from: Other ([employer] in [place]; getting supples as needed) Mask style: Full face Backup mask available: No (will keep old mask when replaced) Last cushion change: 2 weeks ago Prior sleep studies: Yes Year and Where: 2020 - [facility] Type of Sleep Study: Home sleep study HPI additional information: SE DIAZ was diagnosed to have moderate, AHI 26.5, obstructive sleep apnea- hypopnea syndrome and returned today for CPAP therapy 6 week pressure change follow-up. CPAP Compliance Data - Data Reviewed with Patient Average duration of nightly device use: 6 hr 53 min Compliance rate %: 93 (42 days) Current pressure setting (cmH2O): 10-12 Humidity settin Average residual AHI: 0.4 Subjective Patient concerns: denies: aerophagia, mask discomfort, air blowing in eyes, mask leak noise, condensation in mask/hose, nasal congestion, dry mouth, nose, throat, epistaxis, other Observed to snore while using device: No Current pressure setting perceived as: comfortable On therapy, patient: reports: sleeping better, awakening more refreshed, being more awake and alert during the day, more rested overall. denies: drowsiness while driving Initial [place] Sleepiness Scale score: 19 (in 2019) Current [place] Sleepiness Scale score: 4 Allergies and Home Medications Home medication list reviewed: Yes (no new meds) Review of Systems Review of systems same as previous: Yes (no changes) Physical Exam Heart Rate: 84 O2 Saturation: 94 Height: 5 ft 3 in Weight: 195 lb Body Mass Index: 34.5 BMI Classification: Obese Impression and Plan 1. Obstructive Sleep Apnea-Hypopnea Syndrome, moderate, with good treatment compliance and excellent apnea control. On CPAP therapy, the patient has better sleep quality and is more rested overall. She has significant improvement of her apnea and is satisfied with her treatment. She is doing well and wants to continue with CPAP therapy. She was advised to continue to try to lose weight. Currently patients BMI is 34.5. Obesity increases the risk of apnea, CPAP pressure requirements and overall health risks especially cardiovascular and d iabetes. The patient's CPAP pressure range should accommodate some weight loss. Patient's apnea severity and rationale for treatment to reduce apnea, improve sleep quality and reduce cardiovascular and cerebrovascular events was reviewed. I also reviewed the benefit of consistent device use of CPAP for hypertension, CHF, arrhythmia, diabetes, anxiety, and Bipolar/ADD. * Continue auto CPAP pressure at 10-12 cmH2O * Notify me if snoring with mask or feeling that the pressure is too much or too little * Attempt to lose weight * Call this office if any problems using CPAP * Return for follow up in 3 months, or sooner if concerns arise Counseling Topics: Spare mask, Weight loss health impact Visit Type: In Office Time Spent with Patient (minutes): 15 Provider Statement: I spent 100% of the Face to Face Visit with the patient with greater than 50% spent counseling the patient and coordination of care.
== END 2020-08-26 12:35 | disposition home or self-care (01) ==
LOC: SC 12:34
PROVIDERS: ATTEND Nurse Practitioner Family
DX: G47.33 Obstructive sleep apnea (adult) (pediatric) (principal); E66.9 Obesity, unspecified; Z68.34 Body mass index [BMI] 34.0-34.9, adult
CPT/HCPCS: 99212; G0463

== ENCOUNTER 2020-09-10 12:40 | Outpatient (CLI) | payer MEDICARE, MEDICAID ==
[2020-09-10 17:46] LABS: BASOPHILS # (AUTO) 0.1 10^3/uL (0.0-0.1); BASOPHILS % (AUTO) 0.5 %; EOSINOPHILS # (AUTO) 0.2 10^3/uL (0.0-0.7); EOSINOPHILS % (AUTO) 2.4 %; HCT - HEMATOCRIT 38.7 % (37.0-47.0); HGB - HEMOGLOBIN 12.4 g/dL (12.0-16.0); LYMPHOCYTES # (AUTO) 3.1 10^3/uL (1.5-3.5); LYMPHOCYTES % (AUTO) 32.5 %; MEAN CORPUSCULAR HEMOGLOBIN 28.9 pg (27.0-31.0); MEAN CORPUSCULAR VOLUME 90.2 fL (81.0-99.0); MEAN PLATELET VOLUME 11.6 fL (7.9-10.8); MONOCYTES # (AUTO) 0.5 10^3/uL (0.0-1.0); MONOCYTES % (AUTO) 5.2 %; NEUTROPHILS # (AUTO) 5.6 10^3/uL (1.5-6.6); NEUTROPHILS % (AUTO) 59.1 %; PLT - PLATELET COUNT 267 10^3/uL (130-450); RED BLOOD COUNT 4.29 10^6/uL (4.20-5.40); RED CELL DISTRIBUTION WIDTH 14.3 % (12.0-15.0); WHITE BLOOD COUNT 9.5 x10^3/uL (4.8-10.8)
[2020-09-10 17:56] LABS: ALBUMIN 3.8 g/dL (3.2-5.5); ALBUMIN/GLOBULIN RATIO 1.1 (1.0-2.2); BILIRUBIN,TOTAL 0.7 mg/dL (0.2-1.0); CALCIUM 9.7 mg/dL (8.5-10.3); CREATININE 0.9 mg/dL (0.4-1.0); POTASSIUM 3.7 mmol/L (3.5-5.0); TOTAL PROTEIN 7.4 g/dL (6.7-8.2)
[2020-09-10 18:48] LABS: ESTIMATED AVERAGE GLUCOSE 194 mg/dL (70-100); HEMOGLOBIN A1c% 8.4 % (4.27-6.07)
== END 2020-09-10 12:41 | disposition home or self-care (01) ==
LOC: LAB.N 12:40
PROVIDERS: ATTEND Internal Medicine
DX: E11.9 Type 2 diabetes mellitus without complications (principal); Z79.899 Other long term (current) drug therapy
CPT/HCPCS: 36415; 80053; 83036; 85025

== ENCOUNTER 2020-10-04 13:55 | Outpatient (CLI) | payer MEDICARE, MEDICAID ==
[2020-10-04 18:15] LABS: CALCIUM 9.9 mg/dL (8.5-10.3); POTASSIUM 3.9 mmol/L (3.5-5.0)
[2020-10-04 20:10] LABS: ESTIMATED AVERAGE GLUCOSE 209 mg/dL (70-100); HEMOGLOBIN A1c% 8.9 % (4.27-6.07)
== END 2020-10-04 13:56 | disposition home or self-care (01) ==
LOC: LAB.N 13:55
PROVIDERS: ATTEND Internal Medicine
DX: E11.65 Type 2 diabetes mellitus with hyperglycemia (principal)
CPT/HCPCS: 36415; 80048; 83036

== ENCOUNTER 2020-10-11 07:10 | Day surgery (SDC) | payer MEDICARE, MEDICAID ==
[2020-10-11] MEDS ORDERED: LACTATED RINGERS 1,000 ML IV ONE ×3 (08:01→10:10)
--- NOTE | 2020-10-11 08:32 | ANESTHESIA ---
Pre-Anesthesia VS, & Labs - Diagnosis positive cologuard - Procedure diagnostic colonoscopy Vital Signs: Temp Pulse Resp BP Pulse Ox 36.6 C 92 18 162/86 H 99 10/11/20 07:54 10/11/20 07:54 10/11/20 07:54 10/11/20 07:54 10/11/20 07:54 Height: 5 ft 3 in Weight (kg): 89 kg Body Mass Index: 34.7 BMI Classification: Obese - NPO >8 hours - Is Patient ?: No - Lab Results Current Lab Results: Laboratory Tests 10/11/20 08:04: POC Whole Bld Glucose 108 H Home Medications and Allergies Albuterol Sulf [Ventolin Hfa Inhaler] 1 - 2 puffs INH Q6HR PRN 03/31/20 Alirocumab [Praluent Pen] 75 mg SQ OAW 03/31/20 Aspirin [Aspirin EC] 81 mg PO DAILY 03/31/20 Ergocalciferol [Vitamin D2] 50,000 unit PO Q7D 03/31/20 Insulin Aspart 10 unit SQ QDLUNCH 03/31/20 Insulin Aspart 15 unit SQ QDDINNER 03/31/20 Insulin Aspart (Niacinamide) [Fiasp 100 Unit/ml Vial] 15 unit SUBQ QDBREAKFAST 03/31/20 Insulin NPH Human [NovoLIN N] 90 unit SUBQ QPM 03/31/20 Insulin NPH Human [NovoLIN N] 140 unit SUBQ QDBREAKFAST 03/31/20 Liothyronine [Cytomel] 0.25 tab PO QPM 03/31/20 Liothyronine [Cytomel] 25 mcg PO DAILY 03/31/20 Lisinopril [Zestril] 20 mg PO DAILY 03/31/20 Metoprolol Succinate [Toprol Xl] 25 mg PO DAILY 03/31/20 Multivit-Min/FA/Lycopen/Lutein [Centrum Silver Men Tablet] 1 each PO DAILY 03/31/20 Olopatadine HCl [Pataday] 1 drops OP DAILY PRN 03/31/20 Potassium Chloride [K-Dur] 20 meq PO BID 03/31/20 Torsemide 40 mg PO DAILY 03/31/20 amLODIPine [Norvasc] 10 mg PO DAILY 03/31/20 Allergies/Adverse Reactions: Allergies Allergy/AdvReac Type Severity Reaction Status Date / Time Penicillins Allergy Unknown Unknown Verified 06/08/20 16:31 acetaminophen [From Percocet] Allergy Hives Verified 06/08/20 16:31 aripiprazole [From Abilify] Allergy Hives Verified 06/08/20 16:31 brompheniramine Allergy Hives Verified 06/08/20 16:31 [From Dimetapp (brompheniramine-PPA)] canagliflozin [From Invokana] Allergy Hives Verified 06/08/20 16:31 celecoxib [From Celebrex] Allergy Hives Verified 06/08/20 16:31 cephalexin [From Keflex] Allergy Hives Verified 06/08/20 16:31 citalopram [From Celexa] Allergy Hives Verified 06/08/20 16:31 codeine Allergy Rash Verified 06/08/20 16:31 divalproex sodium Allergy Hives Verified 06/08/20 16:31 [From Depakote] enalaprilat [From Vasotec] Allergy Hives Verified 06/08/20 16:31 glipizide Allergy Hives Verified 06/08/20 16:31 hydrocodone Allergy Hives Verified 06/08/20 16:31 latex Allergy Rash Verified 06/08/20 16:31 oxycodone [From Percocet] Allergy Hives Verified 06/08/20 16:31 phenylpropanolamine Allergy Hives Verified 06/08/20 16:31 [From Dimetapp (brompheniramine-PPA)] pioglitazone [From Actos] Allergy Hives Verified 06/08/20 16:31 silicone Allergy Rash Verified 06/08/20 16:31 tramadol [From Ultram] Allergy Hives Verified 06/08/20 16:31 bupropion AdvReac Unknown Verified 06/08/20 16:31 carvedilol AdvReac Unknown Verified 06/08/20 16:31 cetirizine AdvReac Unknown Verified 06/08/20 16:31 chlorthalidone AdvReac Unknown Verified 06/08/20 16:31 ciprofloxacin AdvReac Unknown Verified 06/08/20 16:31 clonidine AdvReac Unknown Verified 06/08/20 16:31 furosemide [From Lasix] AdvReac Unknown Verified 06/08/20 16:31 linagliptin [From Tradjenta] AdvReac Unknown Verified 06/08/20 16:31 metformin AdvReac Unknown Verified 06/08/20 16:31 venlafaxine [From Effexor] AdvReac Unknown Verified 06/08/20 16:31 Anes History & Medical History - Anesthetic History Anesthesia Complications: reports: Post-Operative Nausea/Vomiting - Medical History Cardiovascular: reports: Congestive heart failure, Hypertension, OR Pulmonary: reports: Shortness of breath, Sleep apnea, CPAP use Gastrointestinal: reports: Colon polyps, Other Urinary: reports: Incontinence, Renal insuffiency Neuro: reports: Dementia, TIA Musculoskeletal: reports: Osteoarthritis, Chronic back pain Endocrine/Autoimmune: reports: Type 2 diabetes Blood Disorders: reports: None Skin: reports: None Smoking Status: Never smoker Psychosocial: reports: Depression, Other (bipolar) History of Cancer?: No - Surgical History General: reports: Cholecystectomy, Appendectomy, Colonoscopy Eyes Ears Nose Throat (EENT): reports: Cataracts, Rhinoplasty Cardiothoracic: reports: Pacemaker Gynecologic: reports: Tubal ligation, Hysterectomy, Mastectomy, Other Orthopedic: reports: Arthroscopic surgery, Other Exam General: Alert, Oriented x3, Cooperative, No acute distress Dental: Poor dentition Mouth Openin Fingerbreadth Neck Mobility: Normal Mallampati classification: III Respiratory: Lungs clear, Normal breath sounds, No respiratory distress, No accessory muscle use Cardiovascular: Regular rate, Normal S1, Normal S2, No murmurs Mental/Cognitive Status: Alert/Oriented X3, Normal for patient Plan Anesthesia Type: Total IV Consent for Procedure(s) Verified and Reviewed: Yes Code Status: Attempt Resuscitation ASA classification: 3-Severe systemic disease Is this case an emergency?: No
[2020-10-11] MEDS ORDERED: PROPOFOL 200 MG/20 ML VIAL IVP ONE ×2 (09:06→09:41)
[2020-10-11] MEDS ORDERED: fentaNYL 100 MCG/2 ML VIAL ONE (09:07)
[2020-10-11 10:53] VITALS: BP 114/80
--- NOTE | 2020-10-11 13:52 | ANESTHESIA POST OP EVALUATION ---
Anesthesia Post Eval - Post Anesthesia Eval Vitals: Last Vital Signs Temp 36.4 C L 10/11/20 10:35 Pulse 87 10/11/20 10:35 Resp 16 10/11/20 10:35 BP 114/80 10/11/20 10:35 Pulse Ox 98 10/11/20 10:35 CV Function Including HR & BP: Stable Pain Control: Satisfactory Nausea & Vomiting: Negative Mental Status: Baseline Respiratory Status: Airway Patent Hydration Status: Satisfactory Anesthesia Complications: None
== END 2020-10-11 07:11 | disposition home or self-care (01) ==
LOC: SDS 07:10
PROVIDERS: ATTEND Surgery
PROC: 0DBL8ZZ Excision of Transverse Colon, Via Natural or Artificial Opening Endoscopic (ICD-10-PCS; 2020-10-11)
PROC: 0DBK8ZZ Excision of Ascending Colon, Via Natural or Artificial Opening Endoscopic (ICD-10-PCS; principal; 2020-10-11 08:15)
DX: R19.5 Other fecal abnormalities (principal); K59.09 Other constipation; D12.2 Benign neoplasm of ascending colon; D12.3 Benign neoplasm of transverse colon; K64.8 Other hemorrhoids; K57.30 Diverticulosis of large intestine without perforation or abscess without bleeding; G47.33 Obstructive sleep apnea (adult) (pediatric); E66.9 Obesity, unspecified; Z68.34 Body mass index [BMI] 34.0-34.9, adult; I25.2 Old myocardial infarction; I11.0 Hypertensive heart disease with heart failure; I50.9 Heart failure, unspecified
CPT/HCPCS: 45385; J7120

== ENCOUNTER 2020-11-16 14:01 | Outpatient (CLI) | payer MEDICARE, MEDICAID ==
--- NOTE | 2020-11-16 14:56 | SLEEP CARE CONSULTATION ---
Information from patient questionnaire entered by Shelly Lux. I have reviewed and concur with the information entered by Shelly Lux. This document represents the service I personally performed and the decisions made by , Ara Brandon ARNP. History of Present Illness Service Date and Time: 11/16/2020 1401 Previous diagnosis: Moderate, Obstructive Sleep Apnea-Hypopnea Syndrome AHI: 26.5 (in 2020) Reason for follow up: three month Equipment type: CPAP Equipment obtained from: Other ([employer] in [place]; getting supples as needed) Mask style: Full face Backup mask available: Yes (old mask) Last cushion change: this past week Prior sleep studies: Yes Year and Where: 2020 [facility] Type of Sleep Study: Home sleep study HPI additional information: SE DIAZ was diagnosed to have moderate, AHI 26.5, obstructive sleep apnea- hypopnea syndrome and returned today for CPAP therapy three month] follow-up. CPAP Compliance Data - Data Reviewed with Patient Average duration of nightly device use: 7 hr 3 min Compliance rate %: 98 (90 days) Current pressure setting (cmH2O): 10-12 Humidity settin Average residual AHI: 0.4 Subjective Patient concerns: denies: aerophagia, mask discomfort, air blowing in eyes, mask leak noise, condensation in mask/hose, nasal congestion, dry mouth, nose, throat, epistaxis, other Observed to snore while using device: No Current pressure setting perceived as: comfortable On therapy, patient: reports: sleeping better, awakening more refreshed, being more awake and alert during the day, more rested overall. denies: drowsiness while driving Initial [place] Sleepiness Scale score: 19 (in 2019) Current [place] Sleepiness Scale score: 3 Allergies and Home Medications Home medication list reviewed: Yes (steroid eye drops (not sure of names)) Review of Systems Review of systems same as previous: No (Dementia (moderate Alzheimer's)) Physical Exam Heart Rate: 77 O2 Saturation: 98 Height: 5 ft 3 in Weight: 200 lb Body Mass Index: 35.4 BMI Classification: Obese Impression and Plan 1. Obstructive Sleep Apnea-Hypopnea Syndrome, moderate, with excellent treatment compliance and excellent apnea control. On CPAP therapy, the patient has better sleep quality and is more rested overall. Patient is very happy with current pressure setting. She says it is very comfortable. She denies any issues with mask use. She is sleeping more and feeling rested. Patient is moving to a "Memory care" facility in [place], [place] in 1 to 3 months. Patient will give us the number for her daughter who is her power of staff attorney as needed for follow- ups, etc. Patient encouraged to continue to try to lose weight. She has gained 5 pounds since her last visit but has been under a lot of stress since her last visit. Patient voiced understanding. Patient's apnea severity and rationale for treatment to reduce apnea, improve sleep quality and reduce cardiovascular and cerebrovascular events was reviewed. I also reviewed the benefit of consistent device use of CPAP for hypertension, cardiac disease, arrhythmia, diabetes, anxiety, and Bipolar/ADD. * Continue auto CPAP pressure at 10-12 cmH2O * Notify me if snoring with mask or feeling that the pressure is too much or too little * Attempt to lose weight * Call this office if any problems using CPAP * Return for follow up in 6 months, or sooner if concerns arise Counseling Topics: Spare mask, Weight loss health impact Visit Type: In Office Time Spent with Patient (minutes): 17 Provider Statement: I spent 100% of the Face to Face Visit with the patient with greater than 50% spent counseling the patient and coordination of care.
== END 2020-11-16 14:02 | disposition home or self-care (01) ==
LOC: SC 14:01
PROVIDERS: ATTEND Nurse Practitioner Family
DX: G47.33 Obstructive sleep apnea (adult) (pediatric) (principal); E66.9 Obesity, unspecified; Z68.35 Body mass index [BMI] 35.0-35.9, adult
CPT/HCPCS: 99212; G0463

== ENCOUNTER 2020-11-25 11:26 | Outpatient (CLI) | payer MEDICARE, MEDICAID ==
--- NOTE | 2020-11-25 14:47 | XRAY Report ---
PROCEDURE: Femur 2V RT INDICATIONS: BALANCE PROBLEM TECHNIQUE: 2 views of the femur were acquired. COMPARISON: None. FINDINGS: Bones: No fractures or dislocations. No suspicious bony lesions. Soft tissues: No suspicious soft tissue calcifications or masses. IMPRESSION: No evidence acute bony abnormality of the right femur. Reviewed by: Roscoe Blankenship MD on 11/25/2020 2:46 PM PDT Approved by: Roscoe Blankenship MD on 11/25/2020 2:46 PM PDT Station ID: [id number]
--- NOTE | 2020-11-25 15:40 | XRAY Report ---
PROCEDURE: Foot 2 View RT INDICATIONS: BALANCE PROBLEM TECHNIQUE: 2 views of the foot were acquired. COMPARISON: None FINDINGS: Bones: No fractures or dislocations. No suspicious bony lesions. Prior first metatarsus osteotomy and there are 2 microfixation screws in expected positions. Severe first MTP and diffuse interphalang eal joint space narrowing with periarticular osteophyte formation. Small retrocalcaneal and plantar b one spur. Soft tissues: No tibiotalar joint effusion. Achilles tendon appears normal. IMPRESSION: Prior first metatarsal osteotomy. Severe first MTP joint degeneration. Calcaneal enthesopathy. Reviewed by: CARLOS Jefferson on 11/25/2020 3:38 PM PDT Approved by: Sebas Galindo MD on 11/25/2020 3:38 PM PDT Station ID: [id number]
--- NOTE | 2020-11-25 15:40 | XRAY Report ---
PROCEDURE: Knee 2 View RT INDICATIONS: BALANCE PROBLEM TECHNIQUE: 2 views of the right knee(s) were acquired. COMPARISON: None. FINDINGS: Bones: No fractures or dislocations. No suspicious bony lesions. Soft tissues: No joint effusion. No suspicious soft tissue calcifications. IMPRESSION: Minimal patellofemoral periarticular osteophyte formation; otherwise normal right knee. Reviewed by: CARLOS Jefferson on 11/25/2020 3:38 PM PDT Approved by: Sebas Galindo MD on 11/25/2020 3:38 PM PDT Station ID: [id number]
== END 2020-11-25 23:59 | disposition home or self-care (01) ==
LOC: DI.N 11:26
PROVIDERS: ATTEND Family Medicine
DX: R27.9 Unspecified lack of coordination (principal); M25.761 Osteophyte, right knee; M25.774 Osteophyte, right foot; M77.31 Calcaneal spur, right foot; M19.071 Primary osteoarthritis, right ankle and foot

== ENCOUNTER 2021-01-03 10:37 | Outpatient (CLI) | payer MEDICARE, MEDICAID ==
[2021-01-03 20:34] LABS: ESTIMATED AVERAGE GLUCOSE 192 mg/dL (70-100); HEMOGLOBIN A1c% 8.3 % (4.27-6.07)
== END 2021-01-03 10:38 | disposition home or self-care (01) ==
LOC: LAB.N 10:37
PROVIDERS: ATTEND Nurse Practitioner
DX: E11.65 Type 2 diabetes mellitus with hyperglycemia (principal)
CPT/HCPCS: 36415; 83036